=== PATIENT | male | born 1955 | race Caucasian/White ===

== ENCOUNTER 2016-12-26 15:15 | Observation (INO) | payer OTHER ==
[~2016-12-26 15:15] MED LIST: HYDROXYUREA 500 MG CAPSULE PO SCH
--- NOTE | 2016-12-26 15:32 | PDOC ---
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 The patient states that when he woke up this morning, he was in his usual state of health. He states that the chest pain began abruptly as he was having his morning coffee and reading the newspaper. The patient reports that he went about his day, took a shower, had another cup of coffee and went to the post office. At the post office, the patient states that the pain became unbearable so he decided to go straight to the ED for evaluation. The patient describes the pain as sharp and states that the pain radiates to the left side of his back. The patient states that the pain is exacerbated by any movement and reports that when at rest, he is in no pain. The patient states that he has never experienced these symptoms before. The patient denies feeling lightheaded or dizzy. The patient denies palpitations or shortness of breath. The patient denies fever, chills, headache, nausea, vomiting, diarrhea or dysuria. The patient denies any lower extremity/calf pain. Allergies: Cyclobenzaprine HCl, Methocarbamol, Oxycodone. Past Surgical History: Splenectomy. Social History: Former smoker (quit 40 years ago). Denies alcohol or drug use. PCP: Dr. Becca Cruz Telescope Operator: Dr. Magy Barroso <Rae Broderick - Last Filed: 12/26/16 18:36> - General Chief Complaint: Chest Pain Stated Complaint: LEFT UPPER CHEST & BACK PAIN Time Seen by Provider: 12/26/16 15:31 Past History - Surgical History Abdominal Surgery: Yes (SPLENECTOMY) - Psycho/Social/Smoking Cessation Hx Anxiety: No Suicidal Ideation: No Smoking Status: Yes Smoking History: Former smoker Number of Cigarettes Smoked Daily: 0 <Dorota Pringle - Last Filed: 12/26/16 18:31> <Rae Broderick - Last Filed: 12/26/16 18:36> - Past Medical History Allergies/Adverse Reactions: Allergies Allergy/AdvReac Type Severity Reaction Status Date / Time cyclobenzaprine HCl Allergy Verified 12/26/16 15:26 [From Flexeril] methocarbamol [From Robaxin] Allergy Verified 12/26/16 15:26 oxycodone [Oxycodone] Allergy Verified 12/26/16 15:26 Home Medications: Ambulatory Orders Hydroxyurea [Hydrea -] 1,000 mg PO SUSA 12/26/16 Hydroxyurea [Hydrea -] 500 mg PO MOTUWETHFR 12/26/16 Review of Systems - Review of Systems Able to Perform ROS?: Yes Comments:: 12/26/16 15:38 GENERAL/CONSTITUTIONAL: No fever or chills. No weakness. HEAD, EYES, EARS, NOSE AND THROAT: No change in vision. No ear pain or discharge. No sore throat. CARDIOVASCULAR: +Chest pain. No shortness of breath. RESPIRATORY: No cough, wheezing, or hemoptysis. GASTROINTESTINAL: No nausea, vomiting, diarrhea or constipation. GENITOURINARY: No dysuria, frequency, or change in urination. MUSCULOSKELETAL: No joint or muscle swelling or pain. No neck or back pain. SKIN: No rash. NEUROLOGIC: No headache, vertigo, loss of consciousness, or change in strength/ sensation. ENDOCRINE: No increased thirst. No abnormal weight change. HEMATOLOGIC/LYMPHATIC: No anemia, easy bleeding, or history of blood clots. ALLERGIC/IMMUNOLOGIC: No hives or skin allergy. <Rae Broderick - Last Filed: 12/26/16 18:36> *Physical Exam - Physical Exam Comments: 12/26/16 15:37 GENERAL: Awake, alert, and fully oriented, in no acute distress. HEAD: No signs of trauma. EYES: PERRLA, EOMI, sclera anicteric, conjunctiva clear. ENT: Auricles normal inspection, hearing grossly normal, nares patent, oropharynx clear without exudates. Moist mucosa. NECK: Normal ROM, supple, no lymphadenopathy, JVD, or masses. LUNGS: Breath sounds equal, clear to auscultation bilaterally. No wheezes, and no crackles. HEART: Regular rate and rhythm, normal S1 and S2, no murmurs, rubs or gallops. ABDOMEN: Soft, nontender, normoactive bowel sounds. No guarding, no rebound. No masses. EXTREMITIES: Normal range of motion, no edema. No clubbing or cyanosis. No cords, erythema, or tenderness. NEUROLOGICAL: Cranial nerves II through XII intact. Normal speech, normal gait. SKIN: Warm, dry, normal turgor, no rashes or lesions noted. <Rae Broderick - Last Filed: 12/26/16 18:36> Heart Score/ECG Review #1 ECG reviewed & interpreted by me at: 15:20 (Sinus tachycardia. Q waves in 2, 3 and AVF. Poor R wave progression. Normal intervals. No acute ST segment changes. ) <Rae Broderick - Last Filed: 12/26/16 18:36> ED Treatment Course - LABORATORY CBC & Chemistry Diagram: 12/26/16 15:45 12/26/16 15:45 <Dorota Pringle - Last Filed: 12/26/16 18:31> - LABORATORY CBC & Chemistry Diagram: 12/26/16 15:45 12/26/16 15:45 <Rae Broderick - Last Filed: 12/26/16 18:36> Medical Decision Making - Medical Decision Making 12/26/16 15:35 61-year-old male with history of multiple DVTs in the past and thrombocytosis presents to the emergency department with chest pain since this morning that is intermittent and pleuritic in nature. Differential diagnosis includes but is not limited to: PE, ACS, aortic dissection, pneumothorax, pneumonia, musculoskeletal pain. Plan: 1. EKG 2. Chest x-ray 3. Labs 4. Pain management 5. CT angios chest 6. Observe and reevaluate 12/26/16 18:27 Addendum: the labs were reviewed and are noted in the EMR. CT chest shows no PE or dissection but there is an aneurysmal dilation of the ascending aorta with bilateral pleural effusions. Given his q waves in II, III, F and no prior cardiac work-up, will admit to tele observation for serial cardiac markers and stress test. <Dorota Pringle - Last Filed: 12/26/16 18:31> - Medical Decision Making 12/26/16 18:36 EXAM: RAD/CHEST X-RAY PORTABLE Reviewed By: Dr. Anival Valenzuela IMPRESSION: Since prior chest x-ray dated 05/19/2011, the cardiac silhouette remains within normal limits in size with mild unfolding of the aortic arch. Mild bilateral increased interstitial markings and mild elevation of the right hemidiaphragm again seen. There is a ill-defined focal opacity in the left lung base likely representing summation of shadows, bronchi over the anterior arch of the left sixth rib. Further evaluation with PA and lateral view of the chest is needed for confirmation. EXAM: CT/CHEST CTA Reviewed By: Dr. Anival Valenzuela IMPRESSION: There is no evidence of a pulmonary embolus in the main per minute artery and its proximal bifurcations, bilaterally. Borderline Anusol dilatation of the ascending aorta measuring 4 cm and without evidence of dissection. A small amount of free fluid again seen in the mediastinum and around the aortic arch as well as in the superior cardiac recess, of uncertain etiology, Trace of pericardial effusion is present. Mild bibasal atelectatic changes with foci of atelectatic changes versus airspace disease in the left upper lobe as well as a small focus in the right upper lobe, anteriorly. Minimal bilateral pleural effusion. Mild centrilobular emphysema. <Rae Broderick - Last Filed: 12/26/16 18:36> *DC/Admit/Observation/Transfer - Discharge Dispostion Admit: Yes - Attestations Physician Attestion: 12/26/16 15:36 I, Dr. Dorota Pringle, attest that the scribes documentation that appears above has been prepared under my direction and personally reviewed by me in its entirety. I confirmed that the note above accurately reflects all work, treatment, procedures, and medical decision-making performed by me. <Dorota Pringle - Last Filed: 12/26/16 18:31> - Attestations Scribe Attestion: 12/26/16 15:37 Documentation prepared by Rae Broderick, acting as medical or surgical instrument maker for Dorota Pringle MD. <Rae Broderick - Last Filed: 12/26/16 18:36> Diagnosis at time of Disposition: Chest pain - Discharge Dispostion Condition at time of disposition: Stable - Referrals Referrals: Becca Cruz MD [Primary Care Provider] -
[2016-12-26 15:52] VITALS: BMI 32.5
[2016-12-26 16:14] LABS: MEAN PLT VOLUME 9.8 fl (7.5-11.1)
[2016-12-26 16:16] LABS: MCH 37.2 pg (25.7-33.7); MCHC 33.5 g/dl (32.0-35.9); MEAN CELL VOLUME 110.9 fl (80-96); PLATELET COUNT 394 K/MM3 (134-434); RDW 15.2 % (11.9-15.9); WHITE BLOOD COUNT 15.4 K/mm3 (4.0-10.0)
[2016-12-26 16:19] LABS: ALBUMIN 4.2 g/dl (3.5-5.0); ALK PHOS 60 U/L (32-92); ANION GAP 9 (8-16); BILIRUBIN,TOTAL 1.4 mg/dl (0.2-1.0); CALCIUM 9.5 mg/dl (8.4-10.2); CO2 22 mmol/L (22-28); CPK(DFH) 106 IU/L (38-174); CREATININE 1.2 mg/dl (0.6-1.3); GLUCOSE,RANDOM 153 mg/dl (74-106); INR 1.2 (0.82-1.09); MAGNESIUM 1.7 mg/dL (1.8-2.4); PHOSPHOROUS 2.6 mg/dl (2.5-4.6); PROTHROMBIN TIME (PATIENT) 13.4 SEC (10.2-13.0); SGOT/AST 29 U/L (10-42); SGPT/ALT 18 U/L (10-40); TOT PROT 8.1 g/dl (6.4-8.3)
[2016-12-26 16:28] LABS: TROPONIN I (DFP) < 0.03 ng/ml (0.03-0.50)
[2016-12-26 17:21] LABS: PLATELET ESTIMATE INCREASED (NORMAL)
[2016-12-26 17:23] LABS: PLATELET COMMENT2 SLT PLT CLUMPING
[2016-12-26] MEDS ORDERED: HYDROXYUREA 500 MG CAPSULE PO SCH (22:00)
[2016-12-26 22:23] LABS: CPK(DFH) 88 IU/L (38-174)
[2016-12-26] MEDS ORDERED: MAGNESIUM SULF 50% (8.12 MEQ/2 ML-1 GM VIAL) IVPB ONE (22:33)
--- NOTE | 2016-12-26 22:38 | HP ---
CHIEF COMPLAINT: chest pain PCP: Becca Cruz; Machine Applicator Cementer: Magy Barroso HISTORY OF PRESENT ILLNESS: This is a 61 year old male with a past medical history of thrombocytosis s/p multiple DVTs who presented to the ED with intermittent chest pain since 930am. Pt states that he was fine when he awoke, had coffee and then began feeling "lousy" with mild chest pain. Pt rested in bed for about an hour and then felt better, so he got up and showered and was fine until he was getting out of the car later in the day. the pain started in his back and was stabbing through to his chest. It was worse with twisting motions. The pain persisted while he walked to the postoffice and back so he drove to the ED. Initially upon arrival , he felt worse but the pain spontaneously resolved. No further pain at present. Pt denies palpitations, SOB, N/V/D. ER course was notable for: (1) troponin negative (2) Q wave 2,3,aVF (3) CTA negative for PE Recent Travel: pt denies PAST MEDICAL HISTORY: thrombocytosis multiple DVTs dislocated pelvis 1998 PAST SURGICAL HISTORY: splenectomy 1961 Social History: Smoking: pt denies Alcohol: pt denies Drugs: pt denies Family History: mother in childbirth father , ETOH brother , drug abuser Allergies cyclobenzaprine HCl [From Flexeril] Allergy (Verified 12/26/16 15:26) methocarbamol [From Robaxin] Allergy (Verified 12/26/16 15:26) oxycodone [Oxycodone] Allergy (Verified 12/26/16 15:26) HOME MEDICATIONS: 3 Medication Instructions Recorded Hydroxyurea [Hydrea -] 500 mg PO SUSA 12/26/16 Hydroxyurea [Hydrea -] 1000 mg PO MOTUWETHFR 12/26/16 REVIEW OF SYSTEMS CONSTITUTIONAL: Absent: fever, chills, diaphoresis, generalized weakness, malaise, loss of appetite, weight change HEENT: Absent: rhinorrhea, nasal congestion, throat pain, throat swelling, difficulty swallowing, mouth swelling, ear pain, eye pain, visual changes CARDIOVASCULAR: Present: chest pain Absent: syncope, palpitations, irregular heart rate, lightheadedness, peripheral edema RESPIRATORY: Absent: cough, shortness of breath, dyspnea with exertion, orthopnea, wheezing, stridor, hemoptysis GASTROINTESTINAL: Absent: abdominal pain, abdominal distension, nausea, vomiting, diarrhea, constipation, melena, hematochezia GENITOURINARY: Absent: dysuria, frequency, urgency, hesitancy, hematuria, flank pain, genital pain MUSCULOSKELETAL: Absent: myalgia, arthralgia, joint swelling, back pain, neck pain SKIN: Absent: rash, itching, pallor HEMATOLOGIC/IMMUNOLOGIC: Absent: easy bleeding, easy bruising, lymphadenopathy, frequent infections ENDOCRINE: Absent: unexplained weight gain, unexplained weight loss, heat intolerance, cold intolerance NEUROLOGIC: Absent: headache, focal weakness or paresthesias, dizziness, unsteady gait, seizure, mental status changes, bladder or bowel incontinence PSYCHIATRIC: Absent: anxiety, depression, suicidal or homicidal ideation, hallucinations. PHYSICAL EXAMINATION Vital Signs - 24 hr 3 12/26/16 15:20 Temperature 98.0 F Pulse Rate 102 H Respiratory 16 Rate Blood Pressure 152/103 O2 Sat by Pulse 97 Oximetry (%) GENERAL: Awake, alert, and fully oriented, in no acute distress. HEAD: Normal with no signs of trauma. EYES: Pupils equal, round and reactive to light, extraocular movements intact, sclera anicteric, conjunctiva clear. No lid lag. EARS, NOSE, THROAT: Ears normal, nares patent, oropharynx clear without exudates. Moist mucous membranes. NECK: Normal range of motion, supple without lymphadenopathy, JVD, or masses. LUNGS: Breath sounds equal, clear to auscultation bilaterally. No wheezes, and no crackles. No accessory muscle use. HEART: Regular rate and rhythm, normal S1 and S2 without murmur, rub or gallop. ABDOMEN: Soft, nontender, not distended, normoactive bowel sounds, no guarding, no rebound, no masses. No hepatomegaly or splenomegaly. MUSCULOSKELETAL: Normal range of motion at all joints. No bony deformities or tenderness. No CVA tenderness. UPPER EXTREMITIES: 2+ pulses, warm, well-perfused. No cyanosis. No clubbing. No peripheral edema. LOWER EXTREMITIES: 2+ pulses, warm, well-perfused. No calf tenderness. No peripheral edema. NEUROLOGICAL: Cranial nerves II-XII intact. Normal speech. Normal gait. PSYCHIATRIC: Cooperative. Good eye contact. Appropriate mood and affect. SKIN: Warm, dry, normal turgor, no rashes or lesions noted, normal capillary refill. Laboratory Results - last 24 hr 3 12/26/16 12/26/16 12/26/16 15:45 15:45 15:45 WBC 15.4 H RBC 4.47 Hgb 16.6 Hct 49.6 H MCV 110.9 H MCHC 33.5 RDW 15.2 Plt Count 394 MPV 9.8 Neutrophils % 83.0 H Lymphocytes % 14.0 Monocytes % 3.0 L Platelet Estimate Increased Platelet Comment Slt plt clumping Macrocytosis 2+ INR 1.20 PTT (Actin FS) 30.5 D-Dimer 495 H Sodium 134 L Potassium 4.2 Chloride 103 Carbon Dioxide 22 Anion Gap 9 BUN 18 Creatinine 1.2 Creat Clearance w eGFR > 60 Random Glucose 153 H Calcium 9.5 Phosphorus 2.6 Magnesium 1.7 L Total Bilirubin 1.4 H D AST 29 ALT 18 D Alkaline Phosphatase 60 D Creatine Kinase 106 Troponin I < 0.03 L Total Protein 8.1 Albumin 4.2 Lipase 41 EXAM#: TYPE/EXAM: RESULT: [id number] CT/CHEST CTA History of DVT. Now with chest pain. CT scan of the chest following intravenous contrast. A post intravenous contrast CT angiogram of the chest was performed utilizing pulmonary embolus protocol. Coronal/ sagittal reconstruction images were obtained. 82 cc of Omnipaque 350 was intravenously injected Compared to prior contrast-enhanced CT scan of the chest dated 05/19/2011 No gross filling defect is seen within the main pulmonary artery and its proximal branches. Ascending aorta measures 4 cm in AP dimension without significant interval change. There is a small amount of fluid in the superior mediastinum as well as around the aortic arch and in the superior cardiac recess. The thoracic and visualized portion of the upper abdominal aorta is normally enhanced without evidence of dissection. The heart is within normal limits in size. A trace of pericardial effusion is present. No gross mediastinal or hilar enlarged lymph nodes are identified. There are mild bibasal atelectatic changes. Focal patchy atelectatic changes/airspace disease in the left upper lobe, laterally as well as a small focus of atelectasis/ airspace disease in the right upper lobe, anteriorly. Mild centrilobular emphysema is present. There is minimal bilateral pleural effusion No pneumothorax is identified Included portion of the upper abdomen demonstrates a 1.6 cm right renal exophytic cyst. Partially included focal area of stranding/ edema seen in the mesentery posterior to the right kidney which is of uncertain etiology. Visualized osseous structures appear intact IMPRESSION: There is no evidence of a pulmonary embolus in the main per minute artery and its proximal bifurcations, bilaterally. Borderline Anusol dilatation of the ascending aorta measuring 4 cm and without evidence of dissection. A small amount of free fluid again seen in the mediastinum and around the aortic arch as well as in the superior cardiac recess, of uncertain etiology. Trace of pericardial effusion is present. Mild bibasal atelectatic changes with foci of atelectatic changes versus airspace disease in the left upper lobe as well as a small focus in the right upper lobe, anteriorly. Minimal bilateral pleural effusion. Mild centrilobular emphysema. EXAM#: TYPE/EXAM: RESULT: [id number] RAD/CHEST X-RAY PORTABLE* Chest pain Portable chest x-ray AP sitting. Since prior chest x-ray dated 05/19/2011, the cardiac silhouette remains within normal limits in size with mild unfolding of the aortic arch. Mild bilateral increased interstitial markings and mild elevation of the right hemidiaphragm again seen. There is a ill-defined focal opacity in the left lung base likely representing summation of shadows, bronchi over the anterior arch of the left sixth rib. Further evaluation with PA and lateral view of the chest is needed for confirmation. Impression: See discussion above. ASSESSMENT/PLAN: 61yM with PMH thrombocytosis, splenectomy, DVTs who presented to the ED with chest pain. He is being admitted for observation for chest pain workup. Chest pain - troponin neg x 1, trend x 2 more - cardiology consult - pt adamantly refusing chemical stress test and states he cannot tolerate treadmill due to pelvis injury leukocytosis - unknown etiology, ? reactive, pt afebrile, denies fever, chills, cough at home - repeat labs in am. DVT PPX - chemoprophylaxis deferred, expected LOS < 48h FEN - tolerating po, hold IV - repeat labs including magnesium in am - regular diet Dispo: Pt currently requires inpatient observation of his emergent condition. Visit type - Emergency Visit Emergency Visit: Yes ED Registration Date: 12/26/16 Care time: The patient presented to the Emergency Department on the above date and was hospitalized for further evaluation of their emergent condition. - New Patient This patient is new to me today: Yes Date on this admission: 12/26/16 - Critical Care Critical Care patient: No
[2016-12-26 22:52] LABS: TROPONIN I (DFP) < 0.03 ng/ml (0.03-0.50)
[2016-12-27 06:00] LABS: BASOPHIL 1.2 % (0-2.0); EOSINOPHIL 0.7 % (0-4.5); MCH 36.1 pg (25.7-33.7); MCHC 32.6 g/dl (32.0-35.9); MEAN CELL VOLUME 110.6 fl (80-96); MEAN PLT VOLUME 10.4 fl (7.5-11.1); NEUTROPHILS 61.4 % (42.8-82.8); RDW 15.5 % (11.9-15.9); WHITE BLOOD COUNT 12.9 K/mm3 (4.0-10.0)
[2016-12-27 06:07] LABS: URINE APPEARANCE CLEAR; URINE BILIRUBIN NEGATIVE (NEGATIVE); URINE BLOOD NEGATIVE (NEGATIVE); URINE COLOR YELLOW; URINE GLUCOSE (UA) NEGATIVE (NEGATIVE); URINE KETONE TRACE (NEGATIVE); URINE LEUK ESTERASE TRACE (NEGATIVE); URINE NITRITE NEGATIVE (NEGATIVE); URINE PROTEIN NEGATIVE (NEGATIVE); URINE UROBILINOGEN NEGATIVE E.U./dl (0.2-1.0)
[2016-12-27 06:26] LABS: URINE MUCUS MODERATE; URINE RBC 3 /hpf (0-3); URINE WBC 5 /hpf (3-5)
[2016-12-27 06:31] LABS: ALBUMIN 3.6 g/dl (3.4-5.0); ALK PHOS 65 U/L (45-117); ANION GAP 10 (8-16); BILIRUBIN,TOTAL 1.1 mg/dL (0.2-1.0); CALCIUM 8.6 mg/dL (8.5-10.1); CO2 29 mmol/L (21-32); CREATININE 1.2 mg/dL (0.7-1.3); GLUCOSE,RANDOM 129 mg/dL (74-106); MAGNESIUM 2.3 mg/dL (1.8-2.4); PHOSPHOROUS 3.9 mg/dL (2.5-4.9); SGOT/AST 15 U/L (15-37); SGPT/ALT 19 U/L (12-78); TOT PROT 7.6 g/dl (6.4-8.2)
[2016-12-27 06:52] LABS: PLATELET COUNT 396 K/MM3 (134-434)
[2016-12-27 07:04] LABS: TROPONIN I < 0.02 ng/ml (0.00-0.05)
--- NOTE | 2016-12-27 09:28 | CON.CARD ---
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 He woke up in the morning yesterday unremarkable and then started to have above symptoms which got worse when he had gone to the post office. Since the pain was unbearable, he decided to come to ED here directly for evaluation. ECG was unremarkable except poor R progression and possible inferior segment involvement. Troponins were negative 3 sets. He is chest pain free this morning. CT chest did not reveal evidence of pulmonary embolus. He denies chest pain, shortness of breath or palpitations. He denies paroxysmal nocturnal dyspnea or orthopnea. He denies fever or chills. He denies headache or lightheadedness. Cardiology consultation was called for further evaluation. PCP: Dr. Becca Cruz Music Adapter: Dr. Magy Barroso - History Source History Provided By: Patient, Medical Record Limitations to Obtaining History: No Limitations - Past Medical History Cardio/Vascular: Yes: Deep Vein Thrombosis Heme/Onc: Yes: Other (thrombocytosis) - Past Surgical History Past Surgical History: Yes: Splenectomy - Alcohol/Substance Use Hx Alcohol Use: No - Smoking History Smoking history: Former smoker Have you smoked in the past 12 months: No Aproximately how many cigarettes per day: 0 Home Medications - Allergies Allergies/Adverse Reactions: Allergies Allergy/AdvReac Type Severity Reaction Status Date / Time cyclobenzaprine HCl Allergy Verified 12/26/16 15:26 [From Flexeril] methocarbamol [From Robaxin] Allergy Verified 12/26/16 15:26 oxycodone [Oxycodone] Allergy Verified 12/26/16 15:26 - Home Medications Home Medications: Ambulatory Orders Hydroxyurea [Hydrea -] 1,000 mg PO SUSA 12/26/16 Hydroxyurea [Hydrea -] 500 mg PO MOTUWETHFR 12/26/16 Family Disease History - Family Disease History Other Family History: History of CAD and OH Review of Systems - Review of Systems Constitutional: denies: Chills, Fever Cardiovascular: reports: Chest Pain. denies: Palpitations, Shortness of Breath Respiratory: denies: Cough, Hemoptysis, Orthopnea, PND, SOB, SOB on Exertion Gastrointestinal: denies: Abdominal Pain, Constipation, Diarrhea, Melena, Nausea , Rectal Bleeding, Vomiting Genitourinary: denies: Dysuria Neurological: denies: Dizziness, Headache, Seizure, Syncope Vital Signs: Vital Signs Temperature 97.9 F 12/27/16 05:44 Pulse Rate 80 12/27/16 05:44 Respiratory Rate 19 12/27/16 09:00 Blood Pressure 151/86 12/27/16 05:44 O2 Sat by Pulse Oximetry (%) 93 L 12/27/16 09:00 Neck: Yes: Supple Respiratory: Yes: CTA Bilaterally Gastrointestinal: Yes: Normal Bowel Sounds, Soft. No: Tenderness Cardiovascular: Yes: Regular Rate and Rhythm JVD: No Carotid Bruit: No PMI: Non-Displaced Heart Sounds: Yes: S1, S2 Murmur: No: Systolic Murmur Edema: No - Other Data Labs, Other Data: CBC, BMP 12/27/16 04:30 12/27/16 04:30 INR, PTT INR 1.20 (0.82-1.09) 12/26/16 15:45 Troponin, BNP 12/26/16 12/27/16 12/27/16 21:55 04:30 04:30 Troponin I < 0.03 L Cancelled < 0.02 Laboratory Results - last 24 hr 12/26/16 12/26/16 12/26/16 15:45 15:45 15:45 WBC 15.4 H RBC 4.47 Hgb 16.6 Hct 49.6 H MCV 110.9 H MCHC 33.5 RDW 15.2 Plt Count 394 MPV 9.8 Neutrophils % 83.0 H Lymphocytes % 14.0 Monocytes % 3.0 L Eosinophils % Basophils % Platelet Estimate Increased Platelet Comment Slt plt clumping Macrocytosis 2+ INR 1.20 PTT (Actin FS) D-Dimer 495 H Sodium 134 L Potassium 4.2 Chloride 103 Carbon Dioxide 22 Anion Gap 9 BUN 18 Creatinine 1.2 Creat Clearance w eGFR > 60 Random Glucose 153 H Calcium 9.5 Phosphorus 2.6 Magnesium 1.7 L Total Bilirubin 1.4 H D AST 29 ALT 18 D Alkaline Phosphatase 60 D Creatine Kinase Troponin I Total Protein 8.1 Albumin 4.2 Lipase 41 Urine Color Urine Appearance Urine pH Ur Specific [place] Urine Protein Urine Glucose (UA) Urine Ketones Urine Blood Urine Nitrite Urine Bilirubin Urine Urobilinogen Ur Leukocyte Esterase Urine RBC Urine WBC Ur Epithelial Cells Urine Mucus 12/26/16 12/26/16 12/26/16 15:45 15:45 21:55 WBC RBC Hgb Hct MCV MCHC RDW Plt Count MPV Neutrophils % Lymphocytes % Monocytes % Eosinophils % Basophils % Platelet Estimate Platelet Comment Macrocytosis INR PTT (Actin FS) 30.5 D-Dimer Sodium Potassium Chloride Carbon Dioxide Anion Gap BUN Creatinine Creat Clearance w eGFR Random Glucose Calcium Phosphorus Magnesium Total Bilirubin AST ALT Alkaline Phosphatase Creatine Kinase 106 88 Troponin I < 0.03 L < 0.03 L Total Protein Albumin Lipase Urine Color Urine Appearance Urine pH Ur Specific [place] Urine Protein Urine Glucose (UA) Urine Ketones Urine Blood Urine Nitrite Urine Bilirubin Urine Urobilinogen Ur Leukocyte Esterase Urine RBC Urine WBC Ur Epithelial Cells Urine Mucus 12/27/16 12/27/16 12/27/16 04:30 04:30 04:30 WBC 12.9 H D RBC 4.21 D Hgb 15.2 D Hct 46.5 D MCV 110.6 H MCHC 32.6 RDW 15.5 Plt Count 396 D MPV 10.4 Neutrophils % 61.4 D Lymphocytes % 29.3 D Monocytes % 7.4 D Eosinophils % 0.7 Basophils % 1.2 Platelet Estimate Platelet Comment Macrocytosis INR PTT (Actin FS) D-Dimer Sodium 141 Potassium 4.8 Chloride 102 Carbon Dioxide 29 Anion Gap 10 BUN 17 Creatinine 1.2 Creat Clearance w eGFR > 60 Random Glucose 129 H Calcium 8.6 Phosphorus 3.9 Magnesium 2.3 D Total Bilirubin 1.1 H AST 15 ALT 19 Alkaline Phosphatase 65 Creatine Kinase Cancelled Troponin I Cancelled Total Protein 7.6 Albumin 3.6 Lipase Urine Color Urine Appearance Urine pH Ur Specific [place] Urine Protein Urine Glucose (UA) Urine Ketones Urine Blood Urine Nitrite Urine Bilirubin Urine Urobilinogen Ur Leukocyte Esterase Urine RBC Urine WBC Ur Epithelial Cells Urine Mucus 12/27/16 12/27/16 04:30 04:30 WBC RBC Hgb Hct MCV MCHC RDW Plt Count MPV Neutrophils % Lymphocytes % Monocytes % Eosinophils % Basophils % Platelet Estimate Platelet Comment Macrocytosis INR PTT (Actin FS) D-Dimer Sodium Potassium Chloride Carbon Dioxide Anion Gap BUN Creatinine Creat Clearance w eGFR Random Glucose Calcium Phosphorus Magnesium Total Bilirubin AST ALT Alkaline Phosphatase Creatine Kinase 100 Troponin I < 0.02 Total Protein Albumin Lipase Urine Color Yellow Urine Appearance Clear Urine pH 5.0 Ur Specific [place] 1.057 H Urine Protein Negative Urine Glucose (UA) Negative Urine Ketones Trace H Urine Blood Negative Urine Nitrite Negative Urine Bilirubin Negative Urine Urobilinogen Negative Ur Leukocyte Esterase Trace H Urine RBC 3 Urine WBC 5 Ur Epithelial Cells Rare Urine Mucus Moderate Sinus rhythm with poor R progression, possible inferior infarct Echo: Pending Imaging - Results Chest X-ray: Report Reviewed (interstitial marking) Cat Scan: Report Reviewed (Chest CT no PTE, ascending thoracic aorta 4 cm, atelectasis) EKG: Report Reviewed Problem List - Problems (1) Chest pain Code(s): R07.9 - CHEST PAIN, UNSPECIFIED Qualifiers: Chest pain type: unspecified Qualified Code(s): R07.9 - Chest pain, unspecified (2) Thrombocytosis Code(s): D47.3 - ESSENTIAL (HEMORRHAGIC) THROMBOCYTHEMIA (3) Thrombocytosis after splenectomy Code(s): R79.89 - OTHER SPECIFIED ABNORMAL FINDINGS OF BLOOD CHEMISTRY Z90.81 - ACQUIRED ABSENCE OF SPLEEN (4) Abnormal ECG Code(s): R94.31 - ABNORMAL ELECTROCARDIOGRAM [ECG] [EKG] Assessment/Plan 1. Atypical chest pain radiating to back - resolved, etiology unclear 2. Abnormal ECG - rule out CAD 3. Thrombycytosis with history of multiple DVTs PLAN: 1. Serial cardiac enzymes are negative for OH 2. Transthoracic echocardiography to assess LV and valvular function 3. Recommended stress testing at some point to rule out CAD - preferably pharmacological since he cannot walk on the treadmill. Patient will think it over and will follow up as outpatient 4. Patient was advised to follow up with his Music Adapter for further management of thrombocytosis. Currently he is not on any anticoagulation ( previously had taken Coumadin and Pradaxa at one point) as he does not appear to have any hypercoagulable state according to patient Discharge planning if above test is unremarkable Further plans are to follow Micah Vo MD
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
[2016-12-27] MEDS ORDERED: GABAPENTIN 100 MG CAPSULE (FP) PO SCH (10:00)
--- NOTE | 2016-12-27 13:40 | EKG ---
Test Reason : Blood Pressure : / mmHG Vent. Rate : 078 BPM Atrial Rate : 078 BPM P-R Int : 186 ms QRS Dur : 086 ms QT Int : 392 ms P-R-T Axes : 050 -47 000 degrees QTc Int : 446 ms NORMAL SINUS RHYTHM LEFT AXIS DEVIATION INFERIOR INFARCT (CITED ON OR BEFORE 26-DEC-2016) ABNORMAL ECG WHEN COMPARED WITH ECG OF 26-DEC-2016 15:20, T WAVE VARIATION Confirmed by JOSE ANTONIO GIBSON, ELMER ([id number]) on 12/27/2016 1:39:36 PM Referred By: DR BAILEY Confirmed By:ELMER BRADY MD
--- NOTE | 2016-12-27 13:40 | EKG ---
Test Reason : Blood Pressure : / mmHG Vent. Rate : 111 BPM Atrial Rate : 111 BPM P-R Int : 182 ms QRS Dur : 088 ms QT Int : 338 ms P-R-T Axes : 050 -53 064 degrees QTc Int : 459 ms SINUS TACHYCARDIA POSSIBLE LEFT ATRIAL ENLARGEMENT LEFT AXIS DEVIATION INFERIOR INFARCT , AGE UNDETERMINED ABNORMAL ECG POOR R WAVE PROGRESSION NO PREVIOUS ECGS AVAILABLE Confirmed by ELMER BRADY MD ([id number]) on 12/27/2016 1:40:03 PM Referred By: Confirmed By:ELMER BRADY MD
[2016-12-27 14:18] VITALS: BP 144/84; PULSE 77; TEMP 97.6
[2016-12-31] MEDS ORDERED: HYDROXYUREA 500 MG CAPSULE PO SCH ×2 (10:00→17:00)
== END 2016-12-27 16:15 | disposition home or self-care (01) ==
LOC: FER 15:15 → FM/S 19:16
PROVIDERS: ADMIT Internal Medicine; ATTEND Nurse Practitioner Family
DX: R07.89 Other chest pain (principal); D72.829 Elevated white blood cell count, unspecified; D47.3 Essential (hemorrhagic) thrombocythemia; R94.31 Abnormal electrocardiogram [ECG] [EKG]
CPT/HCPCS: 36415; 71010-TC; 71275-TC; 80053; 81003; 81015; 82550; 83690; 83735; 84100; 84484; 85025; 85379; 85610; 85730; 93005; 93306-TC; 99285-25; G0378; J8999

== ENCOUNTER 2017-04-04 10:07 | Inpatient (IN) | payer OTHER ==
--- NOTE | 2017-04-04 10:29 | PDOC ---
History of Present Illness - General Chief Complaint: Weakness Stated Complaint: LEFT LEG WEAKNESS Time Seen by Provider: 04/04/17 10:09 History Source: Patient Exam Limitations: No Limitations - History of Present Illness Initial Comments: 04/04/17 10:26 61 y/o male with hx of polycythemia vera and blood clots presents to ER with left leg swollen since and SOB. No chest pain, N/V/D/C. No fever or chills. Denies fall or trauma. Severity: moderate Past History - Past Medical History Allergies/Adverse Reactions: Allergies Allergy/AdvReac Type Severity Reaction Status Date / Time cyclobenzaprine HCl Allergy Verified 04/04/17 10:17 [From Flexeril] methocarbamol [From Robaxin] Allergy Verified 04/04/17 10:17 oxycodone [Oxycodone] Allergy Verified 04/04/17 10:17 Home Medications: Ambulatory Orders Hydroxyurea [Hydrea 500Mg Capsule -] 1,000 mg PO SUSA 12/26/16 Hydroxyurea [Hydrea 500Mg Capsule -] 500 mg PO MOTUWETHFR 12/26/16 Gabapentin 04/04/17 Metformin HCl 04/04/17 DVT: Yes - Surgical History Abdominal Surgery: Yes (SPLENECTOMY) - Psycho/Social/Smoking Cessation Hx Anxiety: No Suicidal Ideation: No Smoking Status: Yes Smoking History: Former smoker Have you smoked in the past 12 months: No Number of Cigarettes Smoked Daily: 0 Hx Alcohol Use: No Drug/Substance Use Hx: No Substance Use Type: None Review of Systems - Review of Systems Able to Perform ROS?: Yes Is the patient limited Z[place]ian proficient: No Constitutional: No: Chills, Fever Respiratory: Yes: Shortness of Breath. No: Cough, Wheezing, Productive cough Cardiac (ROS): No: Chest Pain, Palpitations ABD/GI: No: Diarrhea, Nausea, Vomiting : No: Dysuria Musculoskeletal: No: Gout, Joint Pain Integumentary: No: Change in Color, Dryness All Other Systems: Reviewed and Negative *Physical Exam - Physical Exam General Appearance: Yes: Nourished, Appropriately Dressed. No: Apparent Distress HEENT: positive: EOMI, ZENON, Normal ENT Inspection Neck: positive: Trachea midline, Normal Thyroid, Supple. negative: Tender, Rigid Respiratory/Chest: positive: Lungs Clear, Normal Breath Sounds. negative: Chest Tender, Respiratory Distress Cardiovascular: positive: Regular Rhythm, Regular Rate, S1, S2. negative: Edema , JVD, Murmur Vascular Pulses: Femoral (R): 4+, Femoral (L): 4+, Carotid (R): 4+, Carotid (L) : 4+, Dorsalis-Pedis (R): 4+, Doralis-Pedis (L): 4+ Gastrointestinal/Abdominal: positive: Normal Bowel Sounds, Flat, Soft. negative : Tender, Organomegaly Lymphatic: negative: Adenopathy, Tenderness, Other Musculoskeletal: positive: Normal Inspection. negative: CVA Tenderness Extremity: positive: Normal Capillary Refill, Normal Range of Motion, Swelling, Calf Tenderness (left calf mild tenderness noted). negative: Normal Inspection (left leg wollen, no compartment syndrome, pulses 2+/4 b/l in LE, no focal deficits noted), Tender, Coldness, Cyanosis, Erythema Integumentary: positive: Normal Color, Dry, Warm. negative: Cyanotic Neurologic: positive: surface hydrologist II-XII NML intact, Fully Oriented, Alert, Normal Mood/ Affect, Normal Response, Motor Strength 5/5 Heart Score/ECG Review - ECG Intrepretation Comment:: 04/04/17 10:57 sinus tachycardia rate 112 t wave inversions lateral leads ED Treatment Course - LABORATORY CBC & Chemistry Diagram: 04/04/17 10:27 04/04/17 11:53 - ADDITIONAL ORDERS Additional order review: 04/04/17 10:29 61 y/o male with hx of DVT, will need CT chest adn US to r/o DVT/PE Pt in agreement with plan 04/04/17 13:31 CXR normal US left leg, extensive DVT Unable to do CT chest to r/o PE, but will cover with Heparin as per Hospitalist May require dialysis Will admit as per Dr. Suresh 04/04/17 13:38 Spoke with Sommer STEPHENS, will place consult with Hand Assembler For Puller Over and US kidneys Agrees with Heparin order Pt in agreement with plan - RADIOLOGY Radiology Studies Ordered: 04/04/17 13:[address] Suresh, would like renal consult and US kidneys if possible before transfer to [place]. *DC/Admit/Observation/Transfer Diagnosis at time of Disposition: Acute renal failure Qualifiers: Acute renal failure type: unspecified Qualified Code(s): N17.9 - Acute kidney failure, unspecified DVT (deep venous thrombosis) Qualifiers: DVT location: lower extremity Affected thrombotic vein of extremity: femoral Chronicity: acute Laterality: left Qualified Code(s): I82.412 - Acute embolism and thrombosis of left femoral vein - Discharge Dispostion Condition at time of disposition: Guarded Admit: Yes
[2017-04-04 11:09] LABS: ALBUMIN 3.3 g/dl (3.5-5.0); ALK PHOS 78 U/L (32-92); ANION GAP 15 (8-16); BILIRUBIN,TOTAL 1.5 mg/dl (0.2-1.0); CALCIUM 8.9 mg/dl (8.4-10.2); CO2 19 mmol/L (22-28); CREATININE 7.1 mg/dl (0.6-1.3); GLUCOSE,RANDOM 159 mg/dl (74-106); SGOT/AST 20 U/L (10-42); SGPT/ALT 15 U/L (10-40); TOT PROT 7.7 g/dl (6.4-8.3)
[2017-04-04 11:13] LABS: INR 1.24 (0.82-1.09); PROTHROMBIN TIME (PATIENT) 13.8 SEC (10.2-13.0)
[2017-04-04 11:28] LABS: EOSINOPHIL 0.4 % (0-4.5)
[2017-04-04 11:32] LABS: TROPONIN I (DFP) 0.08 ng/ml (0.03-0.50)
[2017-04-04 11:33] LABS: BASOPHIL 1.1 % (0-2.0); MCH 37.3 pg (25.7-33.7); MCHC 33.5 g/dl (32.0-35.9); MEAN CELL VOLUME 111.5 fl (80-96); NEUTROPHILS 83.1 % (42.8-82.8); PLATELET COUNT 325 K/MM3 (134-434); RDW 15.4 % (11.9-15.9)
[2017-04-04] MEDS ORDERED: SODIUM CHLORIDE 1,000 ML IV SCH (12:00)
[2017-04-04 12:50] LABS: ALBUMIN 3.3 g/dl (3.5-5.0); ALK PHOS 77 U/L (32-92); ANION GAP 15 (8-16); BILIRUBIN,TOTAL 1.7 mg/dl (0.2-1.0); CALCIUM 8.9 mg/dl (8.4-10.2); CO2 19 mmol/L (22-28); CREATININE 7.1 mg/dl (0.6-1.3); GLUCOSE,RANDOM 152 mg/dl (74-106); SGOT/AST 14 U/L (10-42); SGPT/ALT 18 U/L (10-40); TOT PROT 7.6 g/dl (6.4-8.3)
[2017-04-04] MEDS ORDERED: HEPARIN INFUSION - 500 ML IVPB ONE (13:43)
[2017-04-04] MEDS ORDERED: HEPARIN NA (PORCINE) 5,000 UNITS/ML 1ML VIAL IVPUSH ONE (13:46)
[2017-04-04] MEDS: HEPARIN - 25,000 UNIT in SODIUM CHLORIDE 495 ML IV SCH ×2 (13:48→22:30)
[2017-04-04] MEDS ORDERED: HEPARIN NA (PORCINE) 5,000 UNITS/ML 1ML VIAL ONE (13:50)
--- NOTE | 2017-04-04 13:58 | HP ---
CHIEF COMPLAINT: left lower extremity pain PCP: Shannon 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: Dr Barroso HISTORY OF PRESENT ILLNESS: Patient is a 61 y/o male, with a past medical history of thrombocytopenia, right lower extremity dvt, and NIDDM. Patient reports on , 03/30/17 he developed pain to the left lower extremity with shortness of breath. Patient reports the pain and shortness of breath has worsened within the past 5 days. However, today he was unable to ambulate due to the ongoing pain to the left lower extremity with progressive shortness of breath. He denies any chest pain, dizziness or headaches. Patient does report compliance with prescribed hydroxyurea. ER course was notable for: (1) ultrasound of left lower extremity deep vein thrombosis of the left lower extremity (2) ekg sinus tachycardia with left axis deviation, inverted t waves inferior leads, unchanged from prior (3) heparin gtt started @ 1348 Recent Travel: none PAST MEDICAL HISTORY: NIDDM, thrombocytopenia PAST SURGICAL HISTORY: spleenectomy Social History: resides at home, full employed Smoking: none Alcohol: none Drugs: none Family History: mother cancer (unknown) father alcholism Allergies cyclobenzaprine HCl [From Flexeril] Allergy (Verified 04/04/17 10:17) methocarbamol [From Robaxin] Allergy (Verified 04/04/17 10:17) oxycodone [Oxycodone] Allergy (Verified 04/04/17 10:17) HOME MEDICATIONS: Home Medications Medication Instructions Recorded Hydroxyurea [Hydrea 500Mg Capsule 1,000 mg PO SUSA 12/26/16 -] Hydroxyurea [Hydrea 500Mg Capsule 500 mg PO MOTUWETHFR 12/26/16 -] Gabapentin 04/04/17 Metformin HCl 04/04/17 REVIEW OF SYSTEMS CONSTITUTIONAL: Absent: fever, chills, diaphoresis, generalized weakness, malaise, loss of appetite, weight change HEENT: Absent: rhinorrhea, nasal congestion, throat pain, throat swelling, difficulty swallowing, mouth swelling, ear pain, eye pain, visual changes CARDIOVASCULAR: Absent: chest pain, syncope, palpitations, irregular heart rate, lightheadedness , peripheral edema RESPIRATORY: Absent: cough, shortness of breath, dyspnea with exertion, orthopnea, wheezing, stridor, hemoptysis GASTROINTESTINAL: Absent: abdominal pain, abdominal distension, nausea, vomiting, diarrhea, constipation, melena, hematochezia GENITOURINARY: Absent: dysuria, frequency, urgency, hesitancy, hematuria, flank pain, genital pain MUSCULOSKELETAL: Present: left lower extremity pain Absent: myalgia, arthralgia, joint swelling, back pain, neck pain SKIN: Absent: rash, itching, pallor HEMATOLOGIC/IMMUNOLOGIC: Absent: easy bleeding, easy bruising, lymphadenopathy, frequent infections ENDOCRINE: Absent: unexplained weight gain, unexplained weight loss, heat intolerance, cold intolerance NEUROLOGIC: Absent: headache, focal weakness or paresthesias, dizziness, unsteady gait, seizure, mental status changes, bladder or bowel incontinence PSYCHIATRIC: Absent: anxiety, depression, suicidal or homicidal ideation, hallucinations. PHYSICAL EXAMINATION Vital Signs - 24 hr 04/04/17 04/04/17 04/04/17 10:08 11:15 13:48 Temperature 97.7 F 98.2 F Pulse Rate 125 H Pulse Rate [ 110 H Right] Respiratory 24 20 Rate Blood Pressure 113/78 128/59 Blood Pressure 128/75 [Left] O2 Sat by Pulse 98 97 Oximetry (%) GENERAL: Awake, alert, and fully oriented, extremely anxious. HEAD: Normal with no signs of trauma. EYES: Pupils equal, round and reactive to light, extraocular movements intact, sclera anicteric, conjunctiva clear. No lid lag. EARS, NOSE, THROAT: Ears normal, nares patent, oropharynx clear without exudates. Moist mucous membranes. NECK: Normal range of motion, supple without lymphadenopathy, JVD, or masses. LUNGS: Breath sounds equal, clear to auscultation bilaterally. No wheezes, and no crackles. No accessory muscle use. HEART: Regular rate and rhythm, normal S1 and S2 without murmur, rub or gallop. ABDOMEN: Soft, obese, nontender, suprapubic tenderness noted, with distention, normoactive bowel sounds, no guarding, no rebound, no masses. No hepatomegaly or splenomegaly. MUSCULOSKELETAL: Normal range of motion at all joints. No bony deformities or tenderness. No CVA tenderness. UPPER EXTREMITIES: 2+ pulses, warm, well-perfused. No cyanosis. No clubbing. No peripheral edema. LOWER EXTREMITIES: 2+ pulses, warm, well-perfused. No calf tenderness. No peripheral edema. LEFT LOWER EXTREMITY: cool to touch, +2 edema, +3 pedal pulse upon palpation NEUROLOGICAL: Cranial nerves II-XII intact. Normal speech. PSYCHIATRIC: Cooperative. Good eye contact. Appropriate mood and affect. SKIN: Warm, dry, normal turgor, no rashes or lesions noted, normal capillary refill. Laboratory Results - last 24 hr 04/04/17 04/04/17 04/04/17 10:27 10:27 10:27 WBC 24.0 H D RBC 4.33 Hgb 16.1 Hct 48.3 MCV 111.5 H MCHC 33.5 RDW 15.4 Plt Count 325 MPV 12.0 H D Neutrophils % 83.1 H Lymphocytes % 11.1 D Monocytes % 4.3 Eosinophils % 0.4 Basophils % 1.1 INR 1.24 H PTT (Actin FS) 28.0 Sodium 133 L Potassium 5.5 H D Chloride 99 Carbon Dioxide 19 L Anion Gap 15 BUN 72 H D Creatinine 7.1 H D Creat Clearance w eGFR 7.89 Random Glucose 159 H Calcium 8.9 Total Bilirubin 1.5 H AST 20 D ALT 15 Alkaline Phosphatase 78 D Creatine Kinase Troponin I Total Protein 7.7 Albumin 3.3 L D 04/04/17 04/04/17 10:27 11:53 WBC RBC Hgb Hct MCV MCHC RDW Plt Count MPV Neutrophils % Lymphocytes % Monocytes % Eosinophils % Basophils % INR PTT (Actin FS) Sodium 133 L Potassium 4.7 Chloride 99 Carbon Dioxide 19 L Anion Gap 15 BUN 71 H Creatinine 7.1 H Creat Clearance w eGFR 7.89 Random Glucose 152 H Calcium 8.9 Total Bilirubin 1.7 H AST 14 D ALT 18 Alkaline Phosphatase 77 Creatine Kinase 36 L Troponin I 0.08 D Total Protein 7.6 Albumin 3.3 L ASSESSMENT/PLAN: 1) left lower extremity dvt - ultrasound reviewed of left lower extremity, extensive dvt, involving the left common femoral through posterior tibial vein, greater saphenous, deep femoral vein, heparin gtt started with bolus - serial neurovascular checks - appreciate the input of vascular surgeon 2) heme thrombocytopenia - continue heparin gtt - appreciate the input of hematology, Dr Barroso, patient's private 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 leukocytosis - pt afebrile, chest xray negative for infiltrate, wbc 24, likely reactive, will order blood and urine cultures - close monitoring of cbc and fever curve 3) endo niddm - hold metformin, start fingersticks achs with regular insulin sliding scale 4) neph reid creatine 7.1 baseline 1.2, reid likely secondary to obstructive uropathy vs thrombosis, bladder distention noted, pt declines guerrier cather at this time, will attempt voiding into urinal, pending renal ultrasound, unable to obtain CTA abd/pelvis due to elevated creatine - avoid nephrotic agents - appreciate the input of nephrology ([facility]) f/e/n - diabetic diet - monitor potassium ppx - heparin - zantac dispo: requires inpatient telemetry admission. Visit type - Emergency Visit Emergency Visit: Yes ED Registration Date: 04/04/17 Care time: The patient presented to the Emergency Department on the above date and was hospitalized for further evaluation of their emergent condition. - New Patient This patient is new to me today: Yes Date on this admission: 04/04/17 - Critical Care Critical Care patient: Yes Total Critical Care Time (in minutes): 45 Critical Care Statement: The care of this patient involved high complexity decision making to prevent further life threatening deterioration of the patient 's condition and/or to evalute & treat vital organ system(s) failure or risk of failure.
[2017-04-04] MEDS ORDERED: ACETAMINOPHEN 325 MG TABLET (FP) PO PRN (14:31)
[2017-04-04 16:33] VITALS: BMI 27.8
--- NOTE | 2017-04-04 16:38 | CONSULT ---
Consult Consult Specialty:: Nephrology Reason for Consultation:: CROW - History of Present Illness Chief Complaint: left leg pain and dysuria History of Present Illness: Pt is a 61 year old male with pmhx of polycythemia, dvt and DM who presents to the ER with left leg pain and swelling for about a week. He was found to have a DVT and admitted for treatment. He says he has had clots in the past. He does follow with a pin machine tender. He was also found to be in renal failure. Upon further questioning he does complain of urgency and frequency. He denies fever or chills. He gets the urge to urinate however urinates a small amount. He does feel that his abdomen is more distended than usual. He denies history of CKD. He denies nsaid use. - History Source History Provided By: Patient, Medical Record - Past Medical History Cardio/Vascular: Yes: Deep Vein Thrombosis Endocrine: Yes: Diabetes Mellitus - Past Surgical History Past Surgical History: Yes: Splenectomy - Alcohol/Substance Use Hx Alcohol Use: No - Smoking History Smoking history: Former smoker Have you smoked in the past 12 months: No Aproximately how many cigarettes per day: 0 Home Medications - Allergies Allergies/Adverse Reactions: Allergies Allergy/AdvReac Type Severity Reaction Status Date / Time cyclobenzaprine HCl Allergy Verified 04/04/17 10:17 [From Flexeril] methocarbamol [From Robaxin] Allergy Verified 04/04/17 10:17 oxycodone [Oxycodone] Allergy Verified 04/04/17 10:17 - Home Medications Home Medications: Ambulatory Orders Hydroxyurea [Hydrea 500Mg Capsule -] 1,000 mg PO SUSA 12/26/16 Hydroxyurea [Hydrea 500Mg Capsule -] 500 mg PO MOTUWETHFR 12/26/16 Gabapentin 04/04/17 Metformin HCl 04/04/17 Family Disease History - Family Disease History Family History: Denies Review of Systems - Review of Systems Constitutional: reports: Malaise Eyes: reports: No Symptoms HENT: reports: No Symptoms Neck: reports: No Symptoms Cardiovascular: reports: No Symptoms Respiratory: reports: No Symptoms Gastrointestinal: reports: No Symptoms Genitourinary: reports: Dysuria, Frequency, Urgency. denies: Hematuria Musculoskeletal: reports: Extremity Pain Neurological: reports: No Symptoms Psychiatric: reports: Anxiety Physical Exam Vital Signs: Vital Signs Temperature 98.2 F 04/04/17 14:07 Pulse Rate 102 H 04/04/17 14:07 Respiratory Rate 20 04/04/17 14:07 Blood Pressure 116/70 04/04/17 14:07 O2 Sat by Pulse Oximetry (%) 97 04/04/17 14:07 Constitutional: Yes: Anxious Eyes: Yes: Conjunctiva Clear HENT: Yes: Atraumatic Neck: Yes: Supple Cardiovascular: Yes: S1, S2 Respiratory: Yes: CTA Bilaterally Gastrointestinal: Yes: Soft Renal/: Yes: Bladder Distention, Guerrier Present, Other (placed guerrier after felt distended bladder) Edema: Yes Edema: LLE: Trace Neurological: Yes: Oriented Psychiatric: Yes: Oriented Labs: Laboratory Tests 04/04/17 04/04/17 04/04/17 10:27 10:27 10:27 WBC 24.0 H D Hgb 16.1 Plt Count 325 INR 1.24 H PTT (Actin FS) 28.0 Sodium 133 L Potassium 5.5 H D Chloride 99 Carbon Dioxide 19 L Anion Gap BUN 72 H D Creatinine 7.1 H D Creat Clearance w eGFR 7.89 Random Glucose 159 H 04/04/17 11:53 WBC Hgb Plt Count INR PTT (Actin FS) Sodium 133 L Potassium 4.7 Chloride 99 Carbon Dioxide 19 L Anion Gap 15 BUN 71 H Creatinine 7.1 H Creat Clearance w eGFR 7.89 Random Glucose 152 H Imaging - Results Chest X-ray: Report Reviewed Ultrasound: Report Reviewed Problem List - Problems (1) Acute renal failure Code(s): N17.9 - ACUTE KIDNEY FAILURE, UNSPECIFIED Qualifiers: Acute renal failure type: unspecified Qualified Code(s): N17.9 - Acute kidney failure, unspecified (2) DVT (deep venous thrombosis) Code(s): I82.409 - ACUTE EMBOLISM AND THOMBOS UNSP DEEP VN UNSP LOWER EXTREMITY Qualifiers: DVT location: lower extremity Affected thrombotic vein of extremity: femoral Chronicity: acute Laterality: left Qualified Code(s): I82.412 - Acute embolism and thrombosis of left femoral vein Assessment/Plan Current Medications Generic Name Dose Route Start Last Admin Trade Name Freq PRN Reason Stop Dose Admin Acetaminophen 650 mg 04/04/17 14:31 Tylenol - PO Q4H PRN fever Heparin Sodium (Porcine) 1,000 unit 04/04/17 13:32 Heparin - IVPUSH PRN PRN Heparin Heparin Sodium (Porcine) 5,000 unit 04/04/17 13:32 Heparin - IVPUSH PRN PRN Heparin Sodium Chloride 1,000 mls @ 150 mls/hr 04/04/17 12:00 04/04/17 12:26 Normal Saline - IV 150 mls/hr ASDIR LAURE Administration Heparin Sodium (Porcine) 25, 500 mls @ 20 mls/hr 04/04/17 13:45 04/04/17 13:48 000 unit/ Sodium Chloride IV 20 mls/hr TITR LAURE Administration Protocol 1,000 UNIT/HR Insulin Aspart 1 vial 04/04/17 16:30 Novolog Vial Sliding Scale - SQ ACHS LAURE Protocol Impression 1. CROW 2. obstructive uropathy 3. hyperkalemia 4. DVT 5. polycythemia 6. DM Plan - found pt to have a markedly distended bladder on exam. Did a bedside scan and he had over a liter of urine in his bladder. Guerrier placed and he began to drain urine. Clamped guerrier at about 800 cc. Keep guerrier clamped for an hour. - will start fluids - urology evaluation - ultrasound kidneys and bladder - check ua and cultures - no indication for HD, spoke to primary team - potassium is improved - monitor output for post obstructive diuresis - hematology evaluation - hold metformin - repeat labs in am - will follow Dr Carias
--- NOTE | 2017-04-04 17:21 | PN ---
Progress Note (short form) - Note Progress Note: Ptient followed by Meng Barroso.
[2017-04-04] MEDS: INSULIN SLIDING SCALE (NOVOLOG) 1 VIAL SQ SCH ×2 (17:54→23:02)
[2017-04-04] MEDS: SODIUM CHLORIDE 1,000 ML IV SCH (18:21)
[2017-04-04 19:22] LABS: URINE APPEARANCE CLEAR; URINE BILIRUBIN NEGATIVE (NEGATIVE); URINE BLOOD 2+ (NEGATIVE); URINE COLOR YELLOW; URINE GLUCOSE (UA) NEGATIVE (NEGATIVE); URINE KETONE NEGATIVE (NEGATIVE); URINE LEUK ESTERASE TRACE (NEGATIVE); URINE NITRITE NEGATIVE (NEGATIVE); URINE PROTEIN NEGATIVE (NEGATIVE); URINE UROBILINOGEN NEGATIVE E.U./dl (0.2-1.0)
[2017-04-04 19:23] LABS: GRANULAR CASTS 3 /lpf; URINE MUCUS RARE; URINE RBC 10 /hpf (0-3); URINE WBC 16 /hpf (3-5)
[2017-04-04 21:14] LABS: TROPONIN I 0.04 ng/ml (0.00-0.05)
[2017-04-04] MEDS: HEPARIN NA (PORCINE) 5,000 UNITS/ML 1ML VIAL IVPUSH PRN (22:26)
[2017-04-05] MEDS ORDERED: LORazepam 0.5 MG TABLET PO ONE (02:08)
[2017-04-05 04:00] LABS: BASOPHIL 0.7 % (0-2.0); EOSINOPHIL 1.1 % (0-4.5); MCH 35.8 pg (25.7-33.7); MCHC 32.3 g/dl (32.0-35.9); MEAN CELL VOLUME 110.8 fl (80-96); MEAN PLT VOLUME 11.4 fl (7.5-11.1); NEUTROPHILS 75.7 % (42.8-82.8); PLATELET COUNT 304 K/MM3 (134-434); WHITE BLOOD COUNT 19.4 K/mm3 (4.0-10.0)
[2017-04-05 04:38] LABS: ALBUMIN 2.6 g/dl (3.4-5.0); ALK PHOS 76 U/L (45-117); ANION GAP 12 (8-16); BILIRUBIN,TOTAL 0.6 mg/dL (0.2-1.0); CALCIUM 8.1 mg/dL (8.5-10.1); CO2 21 mmol/L (21-32); CREATININE 4.4 mg/dL (0.7-1.3); GLUCOSE,RANDOM 132 mg/dL (74-106); SGOT/AST 16 U/L (15-37); SGPT/ALT 16 U/L (12-78); TOT PROT 6.4 g/dl (6.4-8.2)
[2017-04-05] MEDS: HEPARIN - 25,000 UNIT in SODIUM CHLORIDE 495 ML IV SCH ×5 (04:40→23:07)
[2017-04-05] MEDS: HEPARIN NA (PORCINE) 5,000 UNITS/ML 1ML VIAL IVPUSH PRN ×3 (04:41→18:34)
[2017-04-05] MEDS: SODIUM CHLORIDE 1,000 ML IV SCH ×2 (05:45→16:15)
[2017-04-05] MEDS ORDERED: SODIUM CHLORIDE IV SCH (06:34)
[2017-04-05] MEDS ORDERED: HEPARIN IV SCH (06:34)
[2017-04-05] MEDS: INSULIN SLIDING SCALE (NOVOLOG) 1 VIAL SQ SCH ×4 (06:59→21:48)
--- NOTE | 2017-04-05 10:22 | CONSULT ---
- Consultation REQUESTING PROVIDER: Dr. Baires CONSULT REQUEST: We have been asked to surgically evaluate this patient for left leg DVT. PCP:Verenice La HISTORY OF PRESENT ILLNESS: The patient is a 61 yo male who presented to the Ed for symptoms of left leg pain since . He has a significant history of DVT in b/l lower extremities since the . The patient denies any chronic swelling to his lower extremities. Currently he states that his leg feels much better and has minimal pain with movement. He currently denies any CP, SOB. PMHx: thrombocytosis-under the care of Dr. Barroso. 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 PSHx: splenectomy for trauma Home Medications Medication Instructions Recorded Hydroxyurea [Hydrea 500Mg Capsule 1,000 mg PO SUSA 12/26/16 -] Hydroxyurea [Hydrea 500Mg Capsule 500 mg PO MOTUWETHFR 12/26/16 -] Gabapentin 04/04/17 Metformin HCl 04/04/17 Allergies Allergy/AdvReac Type Severity Reaction Status Date / Time cyclobenzaprine HCl Allergy Verified 04/04/17 10:17 [From Flexeril] methocarbamol [From Robaxin] Allergy Verified 04/04/17 10:17 oxycodone [Oxycodone] Allergy Verified 04/04/17 10:17 REVIEW OF SYSTEMS: CONSTITUTIONAL: Absent: fever, chills CARDIOVASCULAR: Absent: chest pain, palpitations Present: left lower peripheral edema(acute) RESPIRATORY: Absent: cough, shortness of breath GASTROINTESTINAL: Absent: abdominal pain, no rectal bleeding/h/o stomach ulcer. Never had EGD/ colonoscopy GENITOURINARY: Absent: dysuria, frequency, hesitancy, hematuria Present: nocturia MUSCULOSKELETAL: Absent: joint swelling, back pain, neck pain Present: right hip pain SKIN: Absent: ulcers, non-healing wounds HEMATOLOGIC/IMMUNOLOGIC: Absent: easy bleeding, easy bruising NEUROLOGIC: Absent: focal weakness, paresthesias PHYSICAL EXAM: GENERAL: Awake, alert, and fully oriented, in no acute distress. HEAD: Normal with no signs of trauma. EYES: sclera anicteric, conjunctiva clear. NECK: Normal ROM, JVD LUNGS: Clear to auscultation bilat anteriorly. No wheezes, and no crackles. No accessory muscle use. HEART: Regular rate and rhythm. No murmurs ABDOMEN: Soft, nontender, not distended, normoactive bowel sounds, no guarding, no rebound, no masses. Left paramedian scar-healed. MUSCULOSKELETAL: Normal ROM at all joints. No bony deformities or tenderness. UPPER EXTREMITIES: 2+ pulses, warm, well-perfused. No cyanosis. Cap refill <2 seconds. No peripheral edema. LOWER EXTREMITIES: 2+ DP pulses, warm, well-perfused(b/l). No calf tenderness. Left leg with edema and pain with active movement. NEUROLOGICAL: Normal speech, gait not observed. PSYCH: Cooperative. Good eye contact. Appropriate mood and affect. SKIN: Warm, dry, normal turgor. Vital Signs Temperature 98.8 F 04/05/17 04:49 Pulse Rate 101 H 04/05/17 04:49 Respiratory Rate 20 04/05/17 04:49 Blood Pressure 127/75 04/05/17 04:49 O2 Sat by Pulse Oximetry (%) 95 04/04/17 21:00 Lab Results WBC 19.4 K/mm3 (4.0-10.0) H D 04/05/17 03:50 RBC 3.81 M/mm3 (4.00-5.60) L 04/05/17 03:50 Hgb 13.6 GM/dL (11.7-16.9) D 04/05/17 03:50 Hct 42.2 % (35.4-49) 04/05/17 03:50 MCV 110.8 fl (80-96) H 04/05/17 03:50 MCHC 32.3 g/dl (32.0-35.9) 04/05/17 03:50 RDW 15.0 % (11.9-15.9) 04/05/17 03:50 Plt Count 304 K/MM3 (134-434) D 04/05/17 03:50 Sodium 137 mmol/L (136-145) 04/05/17 03:50 Potassium 4.7 mmol/L (3.5-5.1) 04/05/17 03:50 Chloride 104 mmol/L (98-107) 04/05/17 03:50 Carbon Dioxide 21 mmol/L (21-32) D 04/05/17 03:50 Anion Gap 12 (8-16) 04/05/17 03:50 BUN 61 mg/dL (7-18) H D 04/05/17 03:50 Creatinine 4.4 mg/dL (0.7-1.3) H D 04/05/17 03:50 Random Glucose 132 mg/dL (74-106) H 04/05/17 03:50 Calcium 8.1 mg/dL (8.5-10.1) L 04/05/17 03:50 INR 1.24 (0.82-1.09) H 04/04/17 10:27 Left leg duplex study: 04/04-noncompression, no flow seen in left common femoral vein, superficial femoral vein, popliteal and posterior tibial vein. noncompressible clot also seen in greater saphrenous and deep femoral vein Problem List - Problems (1) DVT (deep venous thrombosis) Assessment/Plan: The patient has finding of noncompressible left lower extremity clot, currently being treated with IV heparin. Case D/w Dr. Baires and because of the patients recurrent history of lower extremity DVT's he recommends lifelong oral anticoagulation treatment Continue to elevate his left lower ext to help with swelling/pain Code(s): I82.409 - ACUTE EMBOLISM AND THOMBOS UNSP DEEP VN UNSP LOWER EXTREMITY Qualifiers: DVT location: lower extremity Affected thrombotic vein of extremity: femoral Chronicity: acute Laterality: left Qualified Code(s): I82.412 - Acute embolism and thrombosis of left femoral vein Visit type - Case Type Case Type: ED Admission - Emergency Emergency Visit: Yes ED Registration Date: 04/04/17 Care time: The patient presented to the Emergency Department on the above date and was hospitalized for further evaluation of their emergent condition. - New patient This patient is new to me today: Yes Date on this admission: 04/05/17 - Critical Care Critical Care patient: No
--- NOTE | 2017-04-05 13:02 | PN ---
Progress Note (short form) - Note Progress Note: Subjective: The patient was seen and examined at the bedside, he reports feeling better today. Cr improving Current Medications Generic Name Dose Route Start Last Admin Trade Name Renny PRN Reason Stop Dose Admin Acetaminophen 650 mg 04/04/17 14:31 Tylenol - PO Q4H PRN fever Heparin Sodium (Porcine) 1,000 unit 04/04/17 13:32 Heparin - IVPUSH PRN PRN Heparin Heparin Sodium (Porcine) 5,000 unit 04/04/17 13:32 04/05/17 10:57 Heparin - IVPUSH 5,000 unit PRN PRN Administration Heparin Sodium Chloride 1,000 mls @ 125 mls/hr 04/04/17 17:00 04/05/17 05:45 Normal Saline - IV 125 mls/hr ASDIR LAURE Administration Heparin Sodium (Porcine) 25, 500 mls @ 26 mls/hr 04/05/17 09:26 04/05/17 10:58 000 unit/ Sodium Chloride IV 29 mls/hr TITR LAURE Administration Protocol 1,300 UNIT/HR Insulin Aspart 1 vial 04/04/17 16:30 04/05/17 11:22 Novolog Vial Sliding Scale - SQ Not Given ACHS LAURE Protocol Objective: Vital Signs Period Temp Pulse Resp BP Sys/Grey Pulse Ox Last 24 Hr 98.2 F-99.0 F 99-111 20-22 116-130/59-88 95-98 Physical Exam: General: NAD, A&Ox3 Lungs: CTA bilaterally Heart: RRR, S1S2 Abd: Soft, non-tender, non-distended. Guerrier catheter in place with clear/yellow urine Ext: LLE edema 2+. 2+ DP/PT bilaterally Neuro: CN 2-12 intact CBCD WBC 19.4 K/mm3 (4.0-10.0) H D 04/05/17 03:50 RBC 3.81 M/mm3 (4.00-5.60) L 04/05/17 03:50 Hgb 13.6 GM/dL (11.7-16.9) D 04/05/17 03:50 Hct 42.2 % (35.4-49) 04/05/17 03:50 MCV 110.8 fl (80-96) H 04/05/17 03:50 MCHC 32.3 g/dl (32.0-35.9) 04/05/17 03:50 RDW 15.0 % (11.9-15.9) 04/05/17 03:50 Plt Count 304 K/MM3 (134-434) D 04/05/17 03:50 MPV 11.4 fl (7.5-11.1) H 04/05/17 03:50 CMP Sodium 137 mmol/L (136-145) 04/05/17 03:50 Potassium 4.7 mmol/L (3.5-5.1) 04/05/17 03:50 Chloride 104 mmol/L (98-107) 04/05/17 03:50 Carbon Dioxide 21 mmol/L (21-32) D 04/05/17 03:50 Anion Gap 12 (8-16) 04/05/17 03:50 BUN 61 mg/dL (7-18) H D 04/05/17 03:50 Creatinine 4.4 mg/dL (0.7-1.3) H D 04/05/17 03:50 Creat Clearance w eGFR 13.70 (>60) 04/05/17 03:50 Random Glucose 132 mg/dL (74-106) H 04/05/17 03:50 Calcium 8.1 mg/dL (8.5-10.1) L 04/05/17 03:50 Total Bilirubin 0.6 mg/dL (0.2-1.0) D 04/05/17 03:50 AST 16 U/L (15-37) 04/05/17 03:50 ALT 16 U/L (12-78) 04/05/17 03:50 Alkaline Phosphatase 76 U/L (45-117) 04/05/17 03:50 Total Protein 6.4 g/dl (6.4-8.2) 04/05/17 03:50 Albumin 2.6 g/dl (3.4-5.0) L D 04/05/17 03:50 CARDIAC ENZYMES Creatine Kinase 31 IU/L (39-308) L 04/04/17 17:45 Troponin I 0.04 ng/ml (0.00-0.05) D 04/04/17 17:45 Assessment: This is a 61 year old male with PMHx of thrombocytopenia, multiple lower extremity DVTs, NIDDM, spleenectomy, polycythemia vera, who presented to the ED with shortness of breath and RLE swelling Plan: 1) : CROW - Previous Cr on 12/27/16 1.2 - Admission Cr 7.1, now 4.4 today - Continue guerrier catheter - Renal/bladder ultrasound: mild cortical atrophy and mild left-sided hydronephrosis. Thick walled urinary bladder, marked prostatic enlargement - Leukocytosis, f/u urine culture - F/u urology consult - Appreciate nephrology consult 2) Heme: Hx of multiple DVTs, now with extensive LLE DVT - LLE doppler: noncompression, no flow seen in left common femoral vein, superficial femoral vein, popliteal and posterior tibial vein. noncompressible clot also seen in greater saphrenous and deep femoral vein - Per patient, this is his 5th diagnosis of DVT in lower extremities. He reports seeing Dr. Magy Barroso as an outpatient and has never been on anticoagulation before. He states he has declined IVC filter in the past as he "is uncomfortable with the risks associated with it" - Continue Heparin gtt - Elevation - Per surgery, will need lifelong anticoagulation - F/u hematology consult Polycythemia vera - Stable 3) Endocrine: DM - BGM ACHS - ISS ACHS 4) F/E/N: - Diabetic diet - Monitor electrolytes 5) Prophylaxis: - Heparin gtt 6) Dispo: - Requires continued inpatient care CODE STATUS: FULL CODE Visit type - Emergency Visit Emergency Visit: Yes ED Registration Date: 04/04/17 Care time: The patient presented to the Emergency Department on the above date and was hospitalized for further evaluation of their emergent condition. - New Patient This patient is new to me today: Yes Date on this admission: 04/05/17 - Critical Care Critical Care patient: No
--- NOTE | 2017-04-05 13:09 | PN ---
Progress Note, Physician History of Present Illness: Pt seen and examined at bedside. He is awake and alert. He is much calmer than he was yesterday. He says he feels better today. - Current Medication List Current Medications: Active Medications Acetaminophen (Tylenol -) 650 mg PO Q4H PRN PRN Reason: fever Heparin Sodium (Porcine) (Heparin -) 1,000 unit IVPUSH PRN PRN PRN Reason: Heparin Heparin Sodium (Porcine) (Heparin -) 5,000 unit IVPUSH PRN PRN PRN Reason: Heparin Last Admin: 04/05/17 10:57 Dose: 5,000 unit Sodium Chloride (Normal Saline -) 1,000 mls @ 125 mls/hr IV ASDIR LAURE Last Admin: 04/05/17 05:45 Dose: 125 mls/hr Heparin Sodium (Porcine) 25, (000 unit/ Sodium Chloride) 500 mls @ 26 mls/hr IV TITR LAURE; 1,300 UNIT/HR PRN Reason: Protocol Last Admin: 04/05/17 10:58 Dose: 29 mls/hr Insulin Aspart (Novolog Vial Sliding Scale -) 1 vial SQ ACHS LAURE PRN Reason: Protocol Last Admin: 04/05/17 11:22 Dose: Not Given - Objective Vital Signs: Vital Signs Temperature 98.5 F 04/05/17 11:39 Pulse Rate 99 H 04/05/17 11:39 Respiratory Rate 20 04/05/17 11:39 Blood Pressure 128/70 04/05/17 11:39 O2 Sat by Pulse Oximetry (%) 98 04/05/17 09:00 Constitutional: Yes: Calm Eyes: Yes: Conjunctiva Clear HENT: Yes: Atraumatic Neck: Yes: Supple Cardiovascular: Yes: S1, S2 Respiratory: Yes: CTA Bilaterally Gastrointestinal: Yes: Soft Genitourinary: Yes: Guerrier Present Edema: Yes Edema: LLE: 1+ Neurological: Yes: Oriented Psychiatric: Yes: Oriented Labs: CBC, BMP 04/05/17 03:50 04/05/17 03:50 INR, PTT INR 1.24 (0.82-1.09) H 04/04/17 10:27 Problem List - Problems (1) Acute renal failure Code(s): N17.9 - ACUTE KIDNEY FAILURE, UNSPECIFIED Qualifiers: Qualified Code(s): N17.9 - Acute kidney failure, unspecified (2) DVT (deep venous thrombosis) Code(s): I82.409 - ACUTE EMBOLISM AND THOMBOS UNSP DEEP VN UNSP LOWER EXTREMITY Qualifiers: Qualified Code(s): I82.412 - Acute embolism and thrombosis of left femoral vein Assessment/Plan Current Medications Generic Name Dose Route Start Last Admin Trade Name Freq PRN Reason Stop Dose Admin Acetaminophen 650 mg 04/04/17 14:31 Tylenol - PO Q4H PRN fever Heparin Sodium (Porcine) 1,000 unit 04/04/17 13:32 Heparin - IVPUSH PRN PRN Heparin Heparin Sodium (Porcine) 5,000 unit 04/04/17 13:32 04/05/17 10:57 Heparin - IVPUSH 5,000 unit PRN PRN Administration Heparin Sodium Chloride 1,000 mls @ 125 mls/hr 04/04/17 17:00 04/05/17 05:45 Normal Saline - IV 125 mls/hr ASDIR LAURE Administration Heparin Sodium (Porcine) 25, 500 mls @ 26 mls/hr 04/05/17 09:26 04/05/17 10:58 000 unit/ Sodium Chloride IV 29 mls/hr TITR LAURE Administration Protocol 1,300 UNIT/HR Insulin Aspart 1 vial 04/04/17 16:30 04/05/17 11:22 Novolog Vial Sliding Scale - SQ Not Given ACHS LAURE Protocol Impression 1. CROW 2. obstructive uropathy 3. hyperkalemia 4. DVT 5. polycythemia 6. DM 7. prostate enlargement Plan - urology eval for prostate enlargement and obstruction - keep guerrier in place - renal function is improving - CROW secondary to obstructive uropathy - will decrease rate of fluids - repeat labs in am - discussed with primary team - follow up urine culture - wound not restart metformin at this point - will follow Dr Carias
--- NOTE | 2017-04-05 17:24 | EKG ---
Test Reason : Blood Pressure : / mmHG Vent. Rate : 112 BPM Atrial Rate : 112 BPM P-R Int : 148 ms QRS Dur : 078 ms QT Int : 368 ms P-R-T Axes : 077 -72 062 degrees QTc Int : 502 ms SINUS TACHYCARDIA LEFT AXIS DEVIATION INFERIOR INFARCT (CITED ON OR BEFORE 26-DEC-2016) T WAVE ABNORMALITY, CONSIDER ANTERIOR ISCHEMIA WHEN COMPARED WITH ECG OF 27-DEC-2016 04:18, T WAVE INVERSION NO LONGER EVIDENT IN INFERIOR LEADS T WAVE INVERSION NOW EVIDENT IN ANTERIOR LEADS Confirmed by MD MYRANDA, GUNNER ([id number]) on 04/05/2017 5:24:13 PM Referred By: AARON REIS Confirmed By:GUNNER WHITMORE MD
[2017-04-05] MEDS ORDERED: ZOLPIDEM TARTRATE 5 MG TABLET PO ONE (22:36)
[2017-04-06] MEDS: HEPARIN - 25,000 UNIT in SODIUM CHLORIDE 495 ML IV SCH ×4 (02:29→19:05)
[2017-04-06] MEDS: SODIUM CHLORIDE 1,000 ML IV SCH ×2 (02:31→13:14)
[2017-04-06 05:39] LABS: MCH 35.4 pg (25.7-33.7); MCHC 31.8 g/dl (32.0-35.9); MEAN CELL VOLUME 111.3 fl (80-96); RDW 15.2 % (11.9-15.9); WHITE BLOOD COUNT 17.3 K/mm3 (4.0-10.0)
[2017-04-06 05:51] LABS: ALBUMIN 2.7 g/dl (3.4-5.0); ALK PHOS 79 U/L (45-117); ANION GAP 10 (8-16); BILIRUBIN,TOTAL 0.6 mg/dL (0.2-1.0); CALCIUM 8.4 mg/dL (8.5-10.1); CO2 24 mmol/L (21-32); GLUCOSE,RANDOM 129 mg/dL (74-106); SGOT/AST 19 U/L (15-37); SGPT/ALT 19 U/L (12-78); TOT PROT 6.4 g/dl (6.4-8.2)
[2017-04-06] MEDS: INSULIN SLIDING SCALE (NOVOLOG) 1 VIAL SQ SCH ×4 (06:00→21:37)
[2017-04-06] MEDS: HEPARIN NA (PORCINE) 5,000 UNITS/ML 1ML VIAL IVPUSH PRN (06:01)
[2017-04-06 08:31] LABS: MEAN PLT VOLUME 11.5 fl (7.5-11.1); PLATELET COUNT 400 K/MM3 (134-434)
[2017-04-06 08:32] LABS: ANISOCYTOSIS 3+; PLATELET COMMENT2 NO CLOTTING DETECTED; PLATELET COMMENT3 FEW GIANT PLTS; PLATELET ESTIMATE SLT INCREASED (NORMAL); POIKILOCYTOSIS 1+
[2017-04-06] MEDS: GABAPENTIN 100 MG CAPSULE (FP) PO SCH ×2 (09:04→21:30)
[2017-04-06] MEDS ORDERED: TAMSULOSIN HCL 0.4 MG CAP.ER.24H (FP) PO STA (10:03)
--- NOTE | 2017-04-06 10:29 | CON.GU ---
Consult Consult Specialty:: urology Referred by:: medicine Reason for Consultation:: urinary retention, BPH, renal failure - History of Present Illness Chief Complaint: urinary retention, BPH, renal failure History of Present Illness: 61 year old with one week of LUTS including incontinence and urinary retention. His creatinine is elevated and he had >1500 ml residual. He denies prior history and any symptoms prior to one week ago. - History Source History Provided By: Patient, Medical Record Limitations to Obtaining History: No Limitations - Past Medical History Cardio/Vascular: Yes: Deep Vein Thrombosis Renal/: Yes: BPH Endocrine: Yes: Diabetes Mellitus - Past Surgical History Past Surgical History: Yes: Splenectomy - Alcohol/Substance Use Hx Alcohol Use: No - Smoking History Smoking history: Former smoker Have you smoked in the past 12 months: No Aproximately how many cigarettes per day: 0 Home Medications - Allergies Allergies/Adverse Reactions: Allergies Allergy/AdvReac Type Severity Reaction Status Date / Time cyclobenzaprine HCl Allergy Verified 04/04/17 10:17 [From Flexeril] methocarbamol [From Robaxin] Allergy Verified 04/04/17 10:17 oxycodone [Oxycodone] Allergy Verified 04/04/17 10:17 - Home Medications Home Medications: Ambulatory Orders Gabapentin 100 mg PO BID 04/06/17 Hydroxyurea [Hydrea -] 1,000 mg PO MOTUWETHFR 04/06/17 Hydroxyurea [Hydrea -] 500 mg PO SUSA 04/06/17 Metformin HCl 500 mg PO BIDAC 04/06/17 Review of Systems - Review of Systems Genitourinary: reports: Frequency, Incontinence. denies: Dysuria, Flank Pain, Pain Physical Exam- Vital Signs: Vital Signs Temperature 98.3 F 04/06/17 09:21 Pulse Rate 96 H 04/06/17 09:21 Respiratory Rate 20 04/06/17 09:21 Blood Pressure 152/79 04/06/17 09:21 O2 Sat by Pulse Oximetry (%) 98 04/05/17 21:00 Constitutional: Yes: Well Nourished, No Distress, Calm Renal/: Yes: Chavez Present. No: Bladder Distention, CVA Tenderness - Left, CVA Tenderness - Right, Hematuria Labs: CBC, BMP 04/06/17 05:30 04/06/17 05:30 Problem List - Problems (1) Urinary retention due to benign prostatic hyperplasia Assessment/Plan: BPH with urinary retention. Will start immediately on flomax and proscar. 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 Will give a trial of void on 04/10/17. Code(s): N40.1 - BENIGN PROSTATIC HYPERPLASIA WITH LOWER URINARY TRACT SYMP R33.8 - OTHER RETENTION OF URINE
[2017-04-06] MEDS: FINASTERIDE 5 MG TABLET (FP) PO SCH (10:51)
--- NOTE | 2017-04-06 14:23 | PN ---
Physical Exam: SUBJECTIVE: Patient seen and examined at bedside. Denies pain, states swelling in LLE is improved. OBJECTIVE: Vital Signs Period Temp Pulse Resp BP Sys/Grey Pulse Ox Last 24 Hr 97.8 F-98.9 F 84-96 18-20 119-152/74-85 98-99 GENERAL: The patient is awake, alert, and fully oriented, in no acute distress. HEAD: Normal with no signs of trauma. EYES: PERRL, extraocular movements intact, sclera anicteric, conjunctiva clear. No ptosis. LUNGS: Breath sounds equal, clear to auscultation bilaterally, no wheezes, no crackles, no accessory muscle use. HEART: Regular rate and rhythm, S1, S2 without murmur, rub or gallop. ABDOMEN: Soft, nontender, nondistended, normoactive bowel sounds, no guarding, no rebound EXTREMITIES: LLE swelling from thigh to foot, 2+ pulses, warm, well-perfused NEUROLOGICAL: Cranial nerves II through XII grossly intact. Normal speech, gait not observed. Laboratory Results - last 24 hr 04/05/17 04/05/17 04/05/17 15:50 17:32 21:00 WBC RBC Hgb Hct MCV MCHC RDW Plt Count MPV Neutrophils % Lymphocytes % Monocytes % Band Neutrophils Platelet Estimate Platelet Comment Poikilocytosis Anisocytosis Macrocytosis PTT (Actin FS) 36.5 H 65.4 H D Sodium Potassium Chloride Carbon Dioxide Anion Gap BUN Creatinine Creat Clearance w eGFR POC Glucometer 123 Random Glucose Calcium Total Bilirubin AST ALT Alkaline Phosphatase Total Protein Albumin 04/05/17 04/06/17 04/06/17 21:48 05:30 05:30 WBC RBC Hgb Hct MCV MCHC RDW Plt Count MPV Neutrophils % Lymphocytes % Monocytes % Band Neutrophils Platelet Estimate Platelet Comment Poikilocytosis Anisocytosis Macrocytosis PTT (Actin FS) 47.8 H Sodium 140 Potassium 5.2 H Chloride 106 Carbon Dioxide 24 Anion Gap 10 BUN 38 H D Creatinine 2.0 H D Creat Clearance w eGFR 34.03 POC Glucometer 113 Random Glucose 129 H Calcium 8.4 L Total Bilirubin 0.6 AST 19 ALT 19 Alkaline Phosphatase 79 Total Protein 6.4 Albumin 2.7 L 04/06/17 04/06/17 04/06/17 05:30 11:50 11:55 WBC 17.3 H RBC 3.68 L Hgb 13.0 Hct 41.0 MCV 111.3 H MCHC 31.8 L RDW 15.2 Plt Count 400 D MPV 11.5 H Neutrophils % 69.0 Lymphocytes % 20.0 D Monocytes % 9.0 Band Neutrophils 2.0 Platelet Estimate Slt increased Platelet Comment No clotting detected Poikilocytosis 1+ Anisocytosis 3+ Macrocytosis 3+ PTT (Actin FS) 51.4 H Sodium Potassium Chloride Carbon Dioxide Anion Gap BUN Creatinine Creat Clearance w eGFR POC Glucometer 122 Random Glucose Calcium Total Bilirubin AST ALT Alkaline Phosphatase Total Protein Albumin Active Medications Generic Name Dose Route Start Last Admin Trade Name Freq PRN Reason Stop Dose Admin Acetaminophen 650 mg 04/04/17 14:31 Tylenol - PO Q4H PRN fever Finasteride 5 mg 04/06/17 10:30 04/06/17 10:51 Proscar - PO 5 mg DAILY LAURE Administration Gabapentin 100 mg 04/06/17 10:00 04/06/17 09:04 Neurontin - PO 100 mg BID LAURE Administration Heparin Sodium (Porcine) 1,000 unit 04/04/17 13:32 04/06/17 06:01 Heparin - IVPUSH 1,000 unit PRN PRN Administration Heparin Heparin Sodium (Porcine) 5,000 unit 04/04/17 13:32 04/05/17 18:34 Heparin - IVPUSH 5,000 unit PRN PRN Administration Heparin Heparin Sodium (Porcine) 25, 500 mls @ 26 mls/hr 04/05/17 09:26 04/06/17 12:03 000 unit/ Sodium Chloride IV Not Given TITR LAURE Protocol 1,300 UNIT/HR Sodium Chloride 1,000 mls @ 100 mls/hr 04/05/17 13:10 04/06/17 13:14 Normal Saline - IV 100 mls/hr ASDIR LAURE Administration Insulin Aspart 1 vial 04/04/17 16:30 04/06/17 12:02 Novolog Vial Sliding Scale - SQ Not Given ACHS [facility] Protocol Tamsulosin HCl 0.4 mg 04/06/17 22:00 Flomax - PO BID LAURE Imaging 04/04 CXR: unremarkable 04/04 US bladder: mild left hydronephrosis; marked prostate en ASSESSMENT/PLAN 61 year-old male with a significant PMH of polycythemia vera, thrombocytopenia, recurrent lower extremity DVTs, NIDDM, and s/p splenectomy secondary to trauma. Admitted for LLE DVT and CROW. LLE DVT --this is 3rd DVT for this patient, not on anticoagulation at home --on heparin drip --followed by Dr. aMgy Barroso who will see patient this afternoon Polycythemia vera Thrombocytopenia --undergoes therapeutic phlebotomies with Dr. Barroso Acute kidney injury --likely secondary to obstructive, enlarged prostate --Cr 7.1 on admission, today 2.0 --seen by urology, maintain guerrier for now --flomax, proscar NIDDM --Novolog sliding scale coverage F/E/N Fluids: PO intake adequate Electrolytes: replete as indicated Nutrition: diabetic diet DVT prophylaxis: heparin drip, oob, ambulation Physical therapy Dispo: continues to require inpatient care. Full Code. Visit type - Emergency Visit Emergency Visit: Yes ED Registration Date: 04/04/17 Care time: The patient presented to the Emergency Department on the above date and was hospitalized for further evaluation of their emergent condition. - New Patient This patient is new to me today: Yes Date on this admission: 04/06/17 - Critical Care Critical Care patient: No
--- NOTE | 2017-04-06 14:38 | PN ---
Progress Note, Physician History of Present Illness: Pt seen and examined at bedside. He is awake and alert. He denies shortness of breath. - Current Medication List Current Medications: Active Medications Acetaminophen (Tylenol -) 650 mg PO Q4H PRN PRN Reason: fever Finasteride (Proscar -) 5 mg PO DAILY [facility] Last Admin: 04/06/17 10:51 Dose: 5 mg Gabapentin (Neurontin -) 100 mg PO BID LAURE Last Admin: 04/06/17 09:04 Dose: 100 mg Heparin Sodium (Porcine) (Heparin -) 1,000 unit IVPUSH PRN PRN PRN Reason: Heparin Last Admin: 04/06/17 06:01 Dose: 1,000 unit Heparin Sodium (Porcine) (Heparin -) 5,000 unit IVPUSH PRN PRN PRN Reason: Heparin Last Admin: 04/05/17 18:34 Dose: 5,000 unit Heparin Sodium (Porcine) 25, (000 unit/ Sodium Chloride) 500 mls @ 26 mls/hr IV TITR LAURE; 1,300 UNIT/HR PRN Reason: Protocol Last Admin: 04/06/17 12:03 Dose: Not Given Sodium Chloride (Normal Saline -) 1,000 mls @ 100 mls/hr IV ASDIR LAURE Last Admin: 04/06/17 13:14 Dose: 100 mls/hr Insulin Aspart (Novolog Vial Sliding Scale -) 1 vial SQ ACHS LAURE PRN Reason: Protocol Last Admin: 04/06/17 12:02 Dose: Not Given Tamsulosin HCl (Flomax -) 0.4 mg PO BID [facility] - Objective Vital Signs: Vital Signs Temperature 98.3 F 04/06/17 09:21 Pulse Rate 96 H 04/06/17 09:21 Respiratory Rate 20 04/06/17 09:21 Blood Pressure 152/79 04/06/17 09:21 O2 Sat by Pulse Oximetry (%) 99 04/06/17 09:00 Constitutional: Yes: Calm Eyes: Yes: Conjunctiva Clear HENT: Yes: Atraumatic Cardiovascular: Yes: S1, S2 Respiratory: Yes: CTA Bilaterally Gastrointestinal: Yes: Soft Genitourinary: Yes: Chavez Present Musculoskeletal: Yes: Other (left leg swellinh) Edema: LLE: 1+ Neurological: Yes: Oriented Psychiatric: Yes: Oriented Labs: CBC, BMP 04/06/17 05:30 04/06/17 05:30 INR, PTT INR 1.24 (0.82-1.09) H 04/04/17 10:27 Problem List - Problems (1) Acute renal failure Code(s): N17.9 - ACUTE KIDNEY FAILURE, UNSPECIFIED Qualifiers: Qualified Code(s): N17.9 - Acute kidney failure, unspecified (2) DVT (deep venous thrombosis) Code(s): I82.409 - ACUTE EMBOLISM AND THOMBOS UNSP DEEP VN UNSP LOWER EXTREMITY Qualifiers: Qualified Code(s): I82.412 - Acute embolism and thrombosis of left femoral vein Assessment/Plan Current Medications Generic Name Dose Route Start Last Admin Trade Name Freq PRN Reason Stop Dose Admin Acetaminophen 650 mg 04/04/17 14:31 Tylenol - PO Q4H PRN fever Finasteride 5 mg 04/06/17 10:30 04/06/17 10:51 Proscar - PO 5 mg DAILY LAURE Administration Gabapentin 100 mg 04/06/17 10:00 04/06/17 09:04 Neurontin - PO 100 mg BID LAURE Administration Heparin Sodium (Porcine) 1,000 unit 04/04/17 13:32 04/06/17 06:01 Heparin - IVPUSH 1,000 unit PRN PRN Administration Heparin Heparin Sodium (Porcine) 5,000 unit 04/04/17 13:32 04/05/17 18:34 Heparin - IVPUSH 5,000 unit PRN PRN Administration Heparin Heparin Sodium (Porcine) 25, 500 mls @ 26 mls/hr 04/05/17 09:26 04/06/17 12:03 000 unit/ Sodium Chloride IV Not Given TITR LAURE Protocol 1,300 UNIT/HR Sodium Chloride 1,000 mls @ 100 mls/hr 04/05/17 13:10 04/06/17 13:14 Normal Saline - IV 100 mls/hr ASDIR LAURE Administration Insulin Aspart 1 vial 04/04/17 16:30 04/06/17 12:02 Novolog Vial Sliding Scale - SQ Not Given ACHS LAURE Protocol Tamsulosin HCl 0.4 mg 04/06/17 22:00 Flomax - PO BID LAURE Impression 1. CROW 2. obstructive uropathy 3. hyperkalemia 4. DVT 5. polycythemia 6. DM 7. prostate enlargement Plan - renal function is improving - urology input appreciated - voiding trial on 04/10 - hematology evaluation pending - low potassium diet - will decrease rate of fluids - repeat labs in am - wound not restart metformin at this point - will follow Dr Carias
[2017-04-06] MEDS: SODIUM CHLORIDE 0.45% 1,000 ML IV SCH (15:16)
--- NOTE | 2017-04-06 19:47 | PN ---
Progress Note (short form) - Note Progress Note: CONSULT 3P 61 yom well known to me for past few years w a Esequiel 2 positive MPN c/w P Vera. He has been managed w maintenance hydrea and ASA (and phlebotomy w initial presentation. ) There is a h/o LE dvt prior to his care w me and had been on coumadin and pradaxa sometime in past. These details have not been avail to me and he was not taking any a/c at presentation. More recently, he presented to [facility] in 12/16 w some weakness and was w/u for PE; this was neg on CTA. On office f/u, he reported that LE duplex had not been obtained and that he noted LLE swelling which was improving. We obtained a duplex in Dr. Cruz's office which was neg. Of note, he traveled to [place] in January. Adm now w severe pelvic cramping and LLE swelling noted sev days [employer]. He describes HALL which is new while ambulating from parking lot to hosp entrance. The sob briskly improved at rest. Found to have acute LLE DVT and ARF related to retention. Currently feels much better w guerrier and heparin gtt. Reports that LLE swelling is dramatically improved. Renal fxn has improved. PE NAD non-tachypneic lungs - CTA CVS-reg S1S2 abd - obese, soft ext - LLE swellling Imp - P Vera, recurrent thrombosis, improving RF CBC indices are reasonable and would cont to hold hydrea; he will most likely need to resume this in future, pend cbc Recurrent dvt - extended use (life-long) a/c indicated. Have rev'd w him that the MPN is RF for both clotting and bleeding. He now recalls that he was taken off pradaxa when gross hematuria was noted. Tolerating heparin gtt thus far. If no upcoming procedures planned, would transition to out pt a/c regimen. Eliquis is reasonable, (as long as renal fxn doesn't worsen) and I rev 'd that it may be assoc w less bleeding risk vs coumadin. He is in agreement w plan. He should f/u in office shortly post-d/c.
[2017-04-06] MEDS: TAMSULOSIN HCL 0.4 MG CAP.ER.24H (FP) PO SCH (21:29)
[2017-04-07] MEDS: INSULIN SLIDING SCALE (NOVOLOG) 1 VIAL SQ SCH ×4 (06:03→21:38)
[2017-04-07 07:32] LABS: ALBUMIN 2.6 g/dl (3.4-5.0); ALK PHOS 78 U/L (45-117); ANION GAP 10 (8-16); BILIRUBIN,TOTAL 0.6 mg/dL (0.2-1.0); CALCIUM 8.5 mg/dL (8.5-10.1); CO2 23 mmol/L (21-32); CREATININE 1.4 mg/dL (0.7-1.3); GLUCOSE,RANDOM 109 mg/dL (74-106); MAGNESIUM 1.8 mg/dL (1.8-2.4); SGOT/AST 21 U/L (15-37); SGPT/ALT 18 U/L (12-78); TOT PROT 6.2 g/dl (6.4-8.2)
[2017-04-07] MEDS: HEPARIN - 25,000 UNIT in SODIUM CHLORIDE 495 ML IV SCH ×2 (08:00→10:00)
[2017-04-07] MEDS: HEPARIN NA (PORCINE) 5,000 UNITS/ML 1ML VIAL IVPUSH PRN (08:17)
[2017-04-07] MEDS: SODIUM CHLORIDE 0.45% 1,000 ML IV SCH (08:20)
--- NOTE | 2017-04-07 09:32 | PN ---
Physical Exam: SUBJECTIVE: Patient seen and examined. Feels well, voices no complaints. OBJECTIVE: Vital Signs Period Temp Pulse Resp BP Sys/Grey Pulse Ox Last 24 Hr 97.7 F-98.9 F 83-94 19-20 128-153/74-78 96 GENERAL: The patient is awake, alert, and fully oriented, in no acute distress. HEAD: Normal with no signs of trauma. EYES: PERRL, extraocular movements intact, sclera anicteric, conjunctiva clear. No ptosis. LUNGS: Breath sounds equal, clear to auscultation bilaterally, no wheezes, no crackles, no accessory muscle use. HEART: Regular rate and rhythm, S1, S2 without murmur, rub or gallop. ABDOMEN: Soft, nontender, nondistended, normoactive bowel sounds, no guarding, no rebound EXTREMITIES: LLE swelling from thigh to foot, 2+ pulses, warm, well-perfused NEUROLOGICAL: Cranial nerves II through XII grossly intact. Normal speech, gait not observed. Laboratory Results - last 24 hr 04/06/17 04/06/17 04/06/17 11:50 11:55 17:32 PTT (Actin FS) 51.4 H Sodium Potassium Chloride Carbon Dioxide Anion Gap BUN Creatinine Creat Clearance w eGFR POC Glucometer 122 101 Random Glucose Calcium Magnesium Total Bilirubin AST ALT Alkaline Phosphatase Total Protein Albumin 04/06/17 04/07/17 04/07/17 21:33 05:36 05:40 PTT (Actin FS) 43.6 H Sodium Potassium Chloride Carbon Dioxide Anion Gap BUN Creatinine Creat Clearance w eGFR POC Glucometer 124 118 Random Glucose Calcium Magnesium Total Bilirubin AST ALT Alkaline Phosphatase Total Protein Albumin 04/07/17 05:40 PTT (Actin FS) Sodium 140 Potassium 5.1 Chloride 107 Carbon Dioxide 23 Anion Gap 10 BUN 26 H D Creatinine 1.4 H D Creat Clearance w eGFR 51.35 POC Glucometer Random Glucose 109 H Calcium 8.5 Magnesium 1.8 D Total Bilirubin 0.6 AST 21 ALT 18 Alkaline Phosphatase 78 Total Protein 6.2 L Albumin 2.6 L Active Medications Generic Name Dose Route Start Last Admin Trade Name Freq PRN Reason Stop Dose Admin Acetaminophen 650 mg 04/04/17 14:31 Tylenol - PO Q4H PRN fever Finasteride 5 mg 04/06/17 10:30 04/06/17 10:51 Proscar - PO 5 mg DAILY LAURE Administration Gabapentin 100 mg 04/06/17 10:00 04/06/17 21:30 Neurontin - PO 100 mg BID LAURE Administration Heparin Sodium (Porcine) 1,000 unit 04/04/17 13:32 04/07/17 08:17 Heparin - IVPUSH 1,000 unit PRN PRN Administration Heparin Heparin Sodium (Porcine) 5,000 unit 04/04/17 13:32 04/05/17 18:34 Heparin - IVPUSH 5,000 unit PRN PRN Administration Heparin Heparin Sodium (Porcine) 25, 500 mls @ 26 mls/hr 04/05/17 09:26 04/06/17 19:05 000 unit/ Sodium Chloride IV 34 mls/hr TITR LAURE Administration Protocol 1,300 UNIT/HR Sodium Chloride 1,000 mls @ 65 mls/hr 04/06/17 14:45 04/07/17 08:20 1/2 Normal Saline IV 65 mls/hr ASDIR LAURE Administration Insulin Aspart 1 vial 04/04/17 16:30 04/07/17 06:03 Novolog Vial Sliding Scale - SQ Not Given ACHS [facility] Protocol Tamsulosin HCl 0.4 mg 04/06/17 22:00 04/06/17 21:29 Flomax - PO 0.4 mg BID LAURE Administration Imaging 04/04 CXR: unremarkable 04/04 US bladder: mild left hydronephrosis; marked prostate en ASSESSMENT/PLAN 61 year-old male with a significant PMH of polycythemia vera, thrombocytopenia, recurrent lower extremity DVTs, NIDDM, and s/p splenectomy secondary to trauma. Admitted for LLE DVT and CROW. LLE DVT --this is 3rd DVT for this patient, had not been on anticoagulation at home --on heparin drip --seen and evaluated by draw in hand Dr. Magy Barroso; plan to start Eliquis when acute renal issues resolve; she will follow as outpatient Polycythemia vera Thrombocytopenia --stable Acute kidney injury BPH --obstructive, enlarged prostate --Cr 7.1 on admission, today 1.4 --seen by urology, maintain guerrier until 04/10 --continue flomax, proscar NIDDM --Novolog sliding scale coverage F/E/N Fluids: PO intake adequate Electrolytes: replete as indicated Nutrition: diabetic diet DVT prophylaxis: heparin drip, oob, ambulation Physical therapy Dispo: continues to require inpatient care. Full Code. Visit type - Emergency Visit Emergency Visit: Yes ED Registration Date: 04/04/17 Care time: The patient presented to the Emergency Department on the above date and was hospitalized for further evaluation of their emergent condition. - New Patient This patient is new to me today: No - Critical Care Critical Care patient: No
[2017-04-07] MEDS: FINASTERIDE 5 MG TABLET (FP) PO SCH (09:55)
[2017-04-07] MEDS: TAMSULOSIN HCL 0.4 MG CAP.ER.24H (FP) PO SCH ×2 (09:55→21:38)
[2017-04-07] MEDS: GABAPENTIN 100 MG CAPSULE (FP) PO SCH ×2 (09:55→21:38)
[2017-04-07 12:17] LABS: MCHC 31.6 g/dl (32.0-35.9); MEAN CELL VOLUME 113.9 fl (80-96); RDW 15.4 % (11.9-15.9); WHITE BLOOD COUNT 14.6 K/mm3 (4.0-10.0)
[2017-04-07 14:35] LABS: PLATELET COMMENT2 NO CLOTTING DETECTED; PLATELET ESTIMATE ADEQUATE (NORMAL)
[2017-04-07] MEDS ORDERED: SODIUM CHLORIDE 0.45% 1,000 ML IV SCH (15:10)
--- NOTE | 2017-04-07 15:10 | PN ---
Progress Note, Physician History of Present Illness: Pt seen and examined at bedside. He is awake and alert. He denies shortness of breath. He feels that his left leg is improving. - Current Medication List Current Medications: Active Medications Acetaminophen (Tylenol -) 650 mg PO Q4H PRN PRN Reason: fever Finasteride (Proscar -) 5 mg PO DAILY [facility] Last Admin: 04/07/17 09:55 Dose: 5 mg Gabapentin (Neurontin -) 100 mg PO BID [facility] Last Admin: 04/07/17 09:55 Dose: 100 mg Heparin Sodium (Porcine) (Heparin -) 1,000 unit IVPUSH PRN PRN PRN Reason: Heparin Last Admin: 04/07/17 08:17 Dose: 1,000 unit Heparin Sodium (Porcine) (Heparin -) 5,000 unit IVPUSH PRN PRN PRN Reason: Heparin Last Admin: 04/05/17 18:34 Dose: 5,000 unit Heparin Sodium (Porcine) 25, (000 unit/ Sodium Chloride) 500 mls @ 26 mls/hr IV TITR LAURE; 1,300 UNIT/HR PRN Reason: Protocol Last Admin: 04/07/17 08:00 Dose: 36 mls/hr Sodium Chloride (1/2 Normal Saline) 1,000 mls @ 65 mls/hr IV ASDIR [facility] Last Admin: 04/07/17 08:20 Dose: 65 mls/hr Insulin Aspart (Novolog Vial Sliding Scale -) 1 vial SQ ACHS [facility] PRN Reason: Protocol Last Admin: 04/07/17 11:57 Dose: 2 units Tamsulosin HCl (Flomax -) 0.4 mg PO BID [facility] Last Admin: 04/07/17 09:55 Dose: 0.4 mg - Objective Vital Signs: Vital Signs Temperature 98.1 F 04/07/17 14:40 Pulse Rate 94 H 04/07/17 14:40 Respiratory Rate 18 04/07/17 14:40 Blood Pressure 128/74 04/07/17 14:40 O2 Sat by Pulse Oximetry (%) 96 04/07/17 09:00 Constitutional: Yes: Calm Eyes: Yes: Conjunctiva Clear HENT: Yes: Atraumatic Neck: Yes: Supple Cardiovascular: Yes: S1, S2 Respiratory: Yes: CTA Bilaterally Gastrointestinal: Yes: Normal Bowel Sounds, Soft Genitourinary: Yes: WNL Edema: Yes Edema: LLE: 1+ Neurological: Yes: Oriented Psychiatric: Yes: Oriented Labs: CBC, BMP 04/07/17 05:40 04/07/17 05:40 INR, PTT INR 1.24 (0.82-1.09) H 04/04/17 10:27 Problem List - Problems (1) Acute renal failure Code(s): N17.9 - ACUTE KIDNEY FAILURE, UNSPECIFIED Qualifiers: Acute renal failure type: unspecified Qualified Code(s): N17.9 - Acute kidney failure, unspecified (2) DVT (deep venous thrombosis) Code(s): I82.409 - ACUTE EMBOLISM AND THOMBOS UNSP DEEP VN UNSP LOWER EXTREMITY Qualifiers: DVT location: lower extremity Affected thrombotic vein of extremity: femoral Chronicity: acute Laterality: left Qualified Code(s): I82.412 - Acute embolism and thrombosis of left femoral vein Assessment/Plan Current Medications Generic Name Dose Route Start Last Admin Trade Name Freq PRN Reason Stop Dose Admin Acetaminophen 650 mg 04/04/17 14:31 Tylenol - PO Q4H PRN fever Finasteride 5 mg 04/06/17 10:30 04/07/17 09:55 Proscar - PO 5 mg DAILY [facility] Administration Gabapentin 100 mg 04/06/17 10:00 04/07/17 09:55 Neurontin - PO 100 mg BID LA[facility] Administration Heparin Sodium (Porcine) 1,000 unit 04/04/17 13:32 04/07/17 08:17 Heparin - IVPUSH 1,000 unit PRN PRN Administration Heparin Heparin Sodium (Porcine) 5,000 unit 04/04/17 13:32 04/05/17 18:34 Heparin - IVPUSH 5,000 unit PRN PRN Administration Heparin Heparin Sodium (Porcine) 25, 500 mls @ 26 mls/hr 04/05/17 09:26 04/07/17 08:00 000 unit/ Sodium Chloride IV 36 mls/hr TITR LAURE Administration Protocol 1,300 UNIT/HR Sodium Chloride 1,000 mls @ 65 mls/hr 04/06/17 14:45 04/07/17 08:20 1/2 Normal Saline IV 65 mls/hr ASDIR LA[facility] Administration Insulin Aspart 1 vial 04/04/17 16:30 04/07/17 11:57 Novolog Vial Sliding Scale - SQ 2 units ACHS [facility] Administration Protocol Tamsulosin HCl 0.4 mg 04/06/17 22:00 04/07/17 09:55 Flomax - PO 0.4 mg BID LAURE Administration Impression 1. CROW 2. obstructive uropathy 3. hyperkalemia 4. DVT 5. polycythemia 6. DM 7. prostate enlargement Plan - creatinine continues to improve - voiding trial on 04/10 - hematology input appreciated - pt has history of hematuria, urology follow up - low potassium diet - will decrease rate of fluids - repeat labs in am - will follow Dr Carias
[2017-04-07] MEDS ORDERED: INSULIN (NOVOLOG) ASPART 100 UNITS/ML 10ML VIAL ONE (19:57)
[2017-04-08] MEDS: HEPARIN - 25,000 UNIT in SODIUM CHLORIDE 495 ML IV SCH ×3 (01:21→17:00)
[2017-04-08] MEDS: INSULIN SLIDING SCALE (NOVOLOG) 1 VIAL SQ SCH ×4 (06:11→21:25)
[2017-04-08 08:16] LABS: ANION GAP 10 (8-16); CALCIUM 8.5 mg/dL (8.5-10.1); CO2 22 mmol/L (21-32); CREATININE 1.2 mg/dL (0.7-1.3); GLUCOSE,RANDOM 120 mg/dL (74-106); MAGNESIUM 1.6 mg/dL (1.8-2.4); MCH 36.6 pg (25.7-33.7); MCHC 32.6 g/dl (32.0-35.9); MEAN CELL VOLUME 112.2 fl (80-96); PHOSPHOROUS 3.6 mg/dL (2.5-4.9); RDW 15.3 % (11.9-15.9); WHITE BLOOD COUNT 14.7 K/mm3 (4.0-10.0)
[2017-04-08] MEDS: FINASTERIDE 5 MG TABLET (FP) PO SCH (09:03)
[2017-04-08] MEDS: TAMSULOSIN HCL 0.4 MG CAP.ER.24H (FP) PO SCH ×2 (09:03→21:25)
[2017-04-08] MEDS: GABAPENTIN 100 MG CAPSULE (FP) PO SCH ×2 (09:03→21:25)
[2017-04-08] MEDS: HEPARIN NA (PORCINE) 5,000 UNITS/ML 1ML VIAL IVPUSH PRN ×2 (10:50→19:22)
[2017-04-08 11:17] LABS: PLATELET ESTIMATE INCREASED (NORMAL)
--- NOTE | 2017-04-08 11:50 | PN ---
Progress Note (short form) - Note Progress Note: RENAL Pt is awake and alert comfortable says he walked yesterday and felt real good Last Vital Signs Temp Pulse Resp BP Pulse Ox 98.0 F 85 20 151/81 95 04/08/17 06:00 04/08/17 06:00 04/08/17 06:00 04/08/17 06:00 04/07/17 21:00 lungs few rhonchi cvs s1s2 rr abd soft ext left lower extremity edema more than right neuro a+ox3 CBC, BMP 04/08/17 06:30 04/08/17 06:30 Current Medications Generic Name Dose Route Start Last Admin Trade Name Freq PRN Reason Stop Dose Admin Acetaminophen 650 mg 04/04/17 14:31 Tylenol - PO Q4H PRN fever Finasteride 5 mg 04/06/17 10:30 04/08/17 09:03 Proscar - PO 5 mg DAILY [facility] Administration Gabapentin 100 mg 04/06/17 10:00 04/08/17 09:03 Neurontin - PO 100 mg BID LA[facility] Administration Heparin Sodium (Porcine) 1,000 unit 04/04/17 13:32 04/07/17 08:17 Heparin - IVPUSH 1,000 unit PRN PRN Administration Heparin Heparin Sodium (Porcine) 5,000 unit 04/04/17 13:32 04/08/17 10:50 Heparin - IVPUSH 5,000 unit PRN PRN Administration Heparin Heparin Sodium (Porcine) 25, 500 mls @ 26 mls/hr 04/05/17 09:26 04/08/17 10:52 000 unit/ Sodium Chloride IV 1,950 unit/hr TITR LAURE Titration Protocol 1,300 UNIT/HR Sodium Chloride 1,000 mls @ 42 mls/hr 04/07/17 15:10 04/07/17 15:30 1/2 Normal Saline IV 42 mls/hr ASDIR [facility] Administration Insulin Aspart 1 vial 04/04/17 16:30 04/08/17 06:11 Novolog Vial Sliding Scale - SQ Not Given ACHS [facility] Protocol Tamsulosin HCl 0.4 mg 04/06/17 22:00 04/08/17 09:03 Flomax - PO 0.4 mg BID LAURE Administration Impression 1. CROW 2. obstructive uropathy better with guerrier 3. hyperkalemia 4. DVT 5. polycythemia 6. DM 7. prostate enlargement Plan - creatinine continues to improve - voiding trial on 04/10 - pt has history of hematuria, urology follow up - low potassium diet -dc fluids MV
--- NOTE | 2017-04-08 12:34 | PN ---
Physical Exam: SUBJECTIVE: Patient seen and examined oob to chair. Feels better, less depressed. Walked yesterday with PT. Feels a twinge in left calf when he walks. OBJECTIVE: Vital Signs Period Temp Pulse Resp BP Sys/Grey Pulse Ox Last 24 Hr 98.0 F-98.8 F 82-94 18-20 128-151/70-81 95 GENERAL: The patient is awake, alert, and fully oriented, in no acute distress. HEAD: Normal with no signs of trauma. EYES: PERRL, extraocular movements intact, sclera anicteric, conjunctiva clear. No ptosis. LUNGS: Breath sounds equal, clear to auscultation bilaterally, no wheezes, no crackles, no accessory muscle use. HEART: Regular rate and rhythm, S1, S2 without murmur, rub or gallop. ABDOMEN: Soft, nontender, nondistended, normoactive bowel sounds, no guarding, no rebound EXTREMITIES: LLE swelling from thigh to foot, 2+ pulses, warm, well-perfused NEUROLOGICAL: Cranial nerves II through XII grossly intact. Normal speech, gait not observed. Laboratory Results - last 24 hr 04/07/17 04/07/17 04/07/17 05:40 12:50 16:22 WBC 14.6 H RBC 3.61 L Hgb 13.0 Hct 41.1 MCV 113.9 H MCH MCHC 36.0 H RDW 15.4 Plt Count No Result Required. MPV 12.0 H Platelet Estimate Adequate Platelet Comment No clotting detected PTT (Actin FS) 56.0 H Sodium Potassium Chloride Carbon Dioxide Anion Gap BUN Creatinine POC Glucometer 113 Random Glucose Calcium Phosphorus Magnesium 04/07/17 04/08/17 04/08/17 21:35 06:09 06:30 WBC 14.7 H RBC 3.49 L Hgb 12.8 Hct 39.1 MCV 112.2 H MCH 36.6 H MCHC 32.6 RDW 15.3 Plt Count No Result Required. MPV Platelet Estimate Increased Platelet Comment Many large plts PTT (Actin FS) Sodium Potassium Chloride Carbon Dioxide Anion Gap BUN Creatinine POC Glucometer 136 131 Random Glucose Calcium Phosphorus Magnesium 04/08/17 04/08/17 06:30 06:30 WBC RBC Hgb Hct MCV MCH MCHC RDW Plt Count MPV Platelet Estimate Platelet Comment PTT (Actin FS) 39.8 H Sodium 138 Potassium 5.1 Chloride 106 Carbon Dioxide 22 Anion Gap 10 BUN 18 D Creatinine 1.2 POC Glucometer Random Glucose 120 H Calcium 8.5 Phosphorus 3.6 Magnesium 1.6 L Active Medications Generic Name Dose Route Start Last Admin Trade Name Freq PRN Reason Stop Dose Admin Acetaminophen 650 mg 04/04/17 14:31 Tylenol - PO Q4H PRN fever Docusate Sodium 100 mg 04/08/17 14:00 Colace - PO TID LAURE Finasteride 5 mg 04/06/17 10:30 04/08/17 09:03 Proscar - PO 5 mg DAILY [facility] Administration Gabapentin 100 mg 04/06/17 10:00 04/08/17 09:03 Neurontin - PO 100 mg BID [facility] Administration Heparin Sodium (Porcine) 1,000 unit 04/04/17 13:32 04/07/17 08:17 Heparin - IVPUSH 1,000 unit PRN PRN Administration Heparin Heparin Sodium (Porcine) 5,000 unit 04/04/17 13:32 04/08/17 10:50 Heparin - IVPUSH 5,000 unit PRN PRN Administration Heparin Heparin Sodium (Porcine) 25, 500 mls @ 26 mls/hr 04/05/17 09:26 04/08/17 10:52 000 unit/ Sodium Chloride IV 1,950 unit/hr TITR [facility] Titration Protocol 1,300 UNIT/HR Insulin Aspart 1 vial 04/04/17 16:30 04/08/17 12:24 Novolog Vial Sliding Scale - SQ Not Given ACHS [facility] Protocol Tamsulosin HCl 0.4 mg 04/06/17 22:00 04/08/17 09:03 Flomax - PO 0.4 mg BID LAURE Administration Imaging 04/04 CXR: unremarkable 04/04 US bladder: mild left hydronephrosis; marked prostate enlargement ASSESSMENT/PLAN 61 year-old male with a significant PMH of polycythemia vera, thrombocytopenia, recurrent lower extremity DVTs, NIDDM, and s/p splenectomy secondary to trauma. Admitted for LLE DVT and CROW. LLE DVT --this is 3rd DVT for this patient, had not been on anticoagulation at home --on heparin drip --seen and evaluated by jewelry polisher Dr. Magy Barroso; plan to start Eliquis when acute renal issues resolve; she will follow as outpatient Polycythemia vera Thrombocytopenia --stable Acute kidney injury BPH --obstructive, enlarged prostate --Cr 7.1 on admission, today 1.2 --seen by urology, maintain guerrier until 04/10 --continue flomax, proscar NIDDM --Novolog sliding scale coverage F/E/N Fluids: PO intake adequate Electrolytes: replete as indicated Nutrition: diabetic diet DVT prophylaxis: heparin drip, oob, ambulation Physical therapy Dispo: plan is to d/c guerrier on 04/10 and do voiding trial; if successful, start Eliquis and discharge patient. Continues to require inpatient care. Full Code. Visit type - Emergency Visit Emergency Visit: Yes ED Registration Date: 04/04/17 Care time: The patient presented to the Emergency Department on the above date and was hospitalized for further evaluation of their emergent condition. - New Patient This patient is new to me today: No - Critical Care Critical Care patient: No
[2017-04-08] MEDS: DOCUSATE SODIUM 100 MG CAPSULE (FP) PO SCH ×2 (14:26→21:25)
[2017-04-09] MEDS: HEPARIN NA (PORCINE) 5,000 UNITS/ML 1ML VIAL IVPUSH PRN (03:36)
[2017-04-09] MEDS ORDERED: HEPARIN INFUSION - 500 ML IVPB ONE (04:15)
[2017-04-09] MEDS: HEPARIN - 25,000 UNIT in SODIUM CHLORIDE 495 ML IV SCH ×2 (05:53→17:25)
[2017-04-09] MEDS: DOCUSATE SODIUM 100 MG CAPSULE (FP) PO SCH ×3 (06:20→21:56)
[2017-04-09] MEDS: INSULIN SLIDING SCALE (NOVOLOG) 1 VIAL SQ SCH ×3 (06:20→17:25)
[2017-04-09 08:38] LABS: EOSINOPHIL 0.9 % (0-4.5); MCH 36.7 pg (25.7-33.7); MCHC 32.8 g/dl (32.0-35.9); MEAN CELL VOLUME 112.1 fl (80-96); MEAN PLT VOLUME 10.9 fl (7.5-11.1); RDW 15.4 % (11.9-15.9); WHITE BLOOD COUNT 15.2 K/mm3 (4.0-10.0)
[2017-04-09 09:26] LABS: ALBUMIN 2.6 g/dl (3.4-5.0); ANION GAP 10 (8-16); CO2 22 mmol/L (21-32); GLUCOSE,RANDOM 119 mg/dL (74-106); SGOT/AST 20 U/L (15-37); SGPT/ALT 19 U/L (12-78)
[2017-04-09 09:29] LABS: ALK PHOS 77 U/L (45-117); BILIRUBIN,TOTAL 0.7 mg/dL (0.2-1.0); CALCIUM 8.7 mg/dL (8.5-10.1); CREATININE 1.3 mg/dL (0.7-1.3); MAGNESIUM 1.6 mg/dL (1.8-2.4); TOT PROT 6.3 g/dl (6.4-8.2)
[2017-04-09] MEDS: GABAPENTIN 100 MG CAPSULE (FP) PO SCH ×2 (10:18→21:56)
[2017-04-09] MEDS: TAMSULOSIN HCL 0.4 MG CAP.ER.24H (FP) PO SCH ×2 (10:19→21:56)
[2017-04-09] MEDS: FINASTERIDE 5 MG TABLET (FP) PO SCH (10:20)
[2017-04-09 11:15] LABS: PLATELET COUNT 512 K/MM3 (134-434)
--- NOTE | 2017-04-09 11:46 | PN ---
Physical Exam: SUBJECTIVE: Patient seen and examined oob to chair. Has not walked today. OBJECTIVE: Vital Signs Period Temp Pulse Resp BP Sys/Grey Pulse Ox Last 24 Hr 98.3 F-99.0 F 74-94 20-20 133-140/64-74 GENERAL: The patient is awake, alert, and fully oriented, in no acute distress. HEAD: Normal with no signs of trauma. EYES: PERRL, extraocular movements intact, sclera anicteric, conjunctiva clear. No ptosis. LUNGS: Breath sounds equal, clear to auscultation bilaterally, no wheezes, no crackles, no accessory muscle use. HEART: Regular rate and rhythm, S1, S2 without murmur, rub or gallop. ABDOMEN: Soft, nontender, nondistended, normoactive bowel sounds, no guarding, no rebound EXTREMITIES: LLE swelling worse today, now 3-4+; leg is warm, well-perfused, good DP pulses NEUROLOGICAL: Cranial nerves II through XII grossly intact. Normal speech, gait not observed. Laboratory Results - last 24 hr 04/08/17 04/08/17 04/08/17 12:14 17:10 20:53 WBC RBC Hgb Hct MCV MCH MCHC RDW Plt Count MPV Neutrophils % Lymphocytes % Monocytes % Eosinophils % Basophils % PTT (Actin FS) 46.9 H Sodium Potassium Chloride Carbon Dioxide Anion Gap BUN Creatinine Creat Clearance w eGFR POC Glucometer 132 139 Random Glucose Calcium Magnesium Total Bilirubin AST ALT Alkaline Phosphatase Total Protein Albumin 04/09/17 04/09/17 04/09/17 01:30 05:57 07:15 WBC RBC Hgb Hct MCV MCH MCHC RDW Plt Count MPV Neutrophils % Lymphocytes % Monocytes % Eosinophils % Basophils % PTT (Actin FS) 46.1 H 66.6 H D Sodium Potassium Chloride Carbon Dioxide Anion Gap BUN Creatinine Creat Clearance w eGFR POC Glucometer 116 Random Glucose Calcium Magnesium Total Bilirubin AST ALT Alkaline Phosphatase Total Protein Albumin 04/09/17 04/09/17 07:15 07:15 WBC 15.2 H RBC 3.49 L Hgb 12.8 Hct 39.2 MCV 112.1 H MCH 36.7 H MCHC 32.8 RDW 15.4 Plt Count 512 H D MPV 10.9 Neutrophils % 74.0 Lymphocytes % 16.1 Monocytes % 8.0 Eosinophils % 0.9 Basophils % 1.0 PTT (Actin FS) Sodium 139 Potassium 5.2 H Chloride 107 Carbon Dioxide 22 Anion Gap 10 BUN 16 Creatinine 1.3 Creat Clearance w eGFR 55.94 POC Glucometer Random Glucose 119 H Calcium 8.7 Magnesium 1.6 L Total Bilirubin 0.7 AST 20 ALT 19 Alkaline Phosphatase 77 Total Protein 6.3 L Albumin 2.6 L Active Medications Generic Name Dose Route Start Last Admin Trade Name Freq PRN Reason Stop Dose Admin Acetaminophen 650 mg 04/04/17 14:31 Tylenol - PO Q4H PRN fever Docusate Sodium 100 mg 04/08/17 14:00 04/09/17 06:20 Colace - PO 100 mg TID [facility] Administration Finasteride 5 mg 04/06/17 10:30 04/09/17 10:20 Proscar - PO 5 mg DAILY [facility] Administration Gabapentin 100 mg 04/06/17 10:00 04/09/17 10:18 Neurontin - PO 100 mg BID [facility] Administration Heparin Sodium (Porcine) 1,000 unit 04/04/17 13:32 04/09/17 03:36 Heparin - IVPUSH 1,000 unit PRN PRN Administration Heparin Heparin Sodium (Porcine) 5,000 unit 04/04/17 13:32 04/08/17 10:50 Heparin - IVPUSH 5,000 unit PRN PRN Administration Heparin Heparin Sodium (Porcine) 25, 500 mls @ 26 mls/hr 04/05/17 09:26 04/09/17 05:53 000 unit/ Sodium Chloride IV 43 mls/hr TITR [facility] Administration Protocol 1,300 UNIT/HR Insulin Aspart 1 vial 04/04/17 16:30 04/09/17 06:20 Novolog Vial Sliding Scale - SQ Not Given ACHS [facility] Protocol Tamsulosin HCl 0.4 mg 04/06/17 22:00 04/09/17 10:19 Flomax - PO 0.4 mg BID LAURE Administration Imaging 04/04 CXR: unremarkable 04/04 US bladder: mild left hydronephrosis; marked prostate enlargement 04/04: DVT entire LLE ASSESSMENT/PLAN 61 year-old male with a significant PMH of polycythemia vera, thrombocytopenia, recurrent lower extremity DVTs, NIDDM, and s/p splenectomy secondary to trauma. Admitted for LLE DVT and CROW. LLE DVT --swelling is worse today; requested IR consult for possible thrombectomy --continue heparin drip --seen and evaluated by nylon winder Dr. Magy Barroso; plan to start Eliquis when acute renal issues resolve; she will follow as outpatient Acute kidney injury, resolved BPH --obstructive, enlarged prostate --Cr 7.1 on admission, today 1.3 --seen by urology, maintain guerrier until 04/10 --continue flomax, proscar Polycythemia vera Thrombocytosis Leukocytosis --chronic issues, follow up with Dr. Barroso as outpatient NIDDM --Novolog sliding scale coverage F/E/N Fluids: PO intake adequate Electrolytes: replete as indicated Nutrition: diabetic diet DVT prophylaxis: heparin drip, oob, ambulation Physical therapy Daily PT Dispo: continues to require inpatient care. Full Code. Visit type - Emergency Visit Emergency Visit: Yes ED Registration Date: 04/04/17 Care time: The patient presented to the Emergency Department on the above date and was hospitalized for further evaluation of their emergent condition. - New Patient This patient is new to me today: No - Critical Care Critical Care patient: No
--- NOTE | 2017-04-09 12:00 | PN ---
Progress Note (short form) - Note Progress Note: RENAL Pt is awake and alert comfortable feels well Last Vital Signs Temp Pulse Resp BP Pulse Ox 98.3 F 74 20 140/64 96 04/09/17 06:00 04/09/17 06:00 04/09/17 06:00 04/09/17 06:00 04/08/17 09:00 lungs few rhonchi cvs s1s2 rr abd soft ext left lower extremity edema more than right neuro a+ox3 CBC, BMP 04/09/17 07:15 04/09/17 07:15 Current Medications Generic Name Dose Route Start Last Admin Trade Name Freq PRN Reason Stop Dose Admin Acetaminophen 650 mg 04/04/17 14:31 Tylenol - PO Q4H PRN fever Docusate Sodium 100 mg 04/08/17 14:00 04/09/17 06:20 Colace - PO 100 mg TID [facility] Administration Finasteride 5 mg 04/06/17 10:30 04/09/17 10:20 Proscar - PO 5 mg DAILY [facility] Administration Gabapentin 100 mg 04/06/17 10:00 04/09/17 10:18 Neurontin - PO 100 mg BID [facility] Administration Heparin Sodium (Porcine) 1,000 unit 04/04/17 13:32 04/09/17 03:36 Heparin - IVPUSH 1,000 unit PRN PRN Administration Heparin Heparin Sodium (Porcine) 5,000 unit 04/04/17 13:32 04/08/17 10:50 Heparin - IVPUSH 5,000 unit PRN PRN Administration Heparin Heparin Sodium (Porcine) 25, 500 mls @ 26 mls/hr 04/05/17 09:26 04/09/17 05:53 000 unit/ Sodium Chloride IV 43 mls/hr TITR [facility] Administration Protocol 1,300 UNIT/HR Insulin Aspart 1 vial 04/04/17 16:30 04/09/17 06:20 Novolog Vial Sliding Scale - SQ Not Given ACHS [facility] Protocol Tamsulosin HCl 0.4 mg 04/06/17 22:00 04/09/17 10:19 Flomax - PO 0.4 mg BID [facility] Administration Impression 1. CROW 2. obstructive uropathy better with guerrier 3. hyperkalemia may improve once heparin is discontinued 4. DVT 5. polycythemia 6. DM 7. prostate enlargement Plan - creatinine continues to improve - voiding trial on 04/10 - pt has history of hematuria, urology follow up - low potassium diet MV
[2017-04-09] MEDS ORDERED: PT OWN MED DRAWER 7, Y5N ONE (18:52)
[2017-04-10] MEDS: INSULIN SLIDING SCALE (NOVOLOG) 1 VIAL SQ SCH ×3 (01:29→11:00)
[2017-04-10] MEDS ORDERED: HEPARIN INFUSION - 500 ML IVPB ONE (05:25)
[2017-04-10] MEDS: HEPARIN - 25,000 UNIT in SODIUM CHLORIDE 495 ML IV SCH ×2 (05:30→09:37)
[2017-04-10] MEDS: DOCUSATE SODIUM 100 MG CAPSULE (FP) PO SCH (06:40)
[2017-04-10 08:40] LABS: WHITE BLOOD COUNT 15.8 K/mm3 (4.0-10.0)
[2017-04-10 08:41] LABS: MCH 36.6 pg (25.7-33.7); MCHC 32.8 g/dl (32.0-35.9); MEAN CELL VOLUME 111.6 fl (80-96); MEAN PLT VOLUME 10.6 fl (7.5-11.1); RDW 14.9 % (11.9-15.9)
[2017-04-10] MEDS: TAMSULOSIN HCL 0.4 MG CAP.ER.24H (FP) PO SCH (09:31)
[2017-04-10] MEDS: FINASTERIDE 5 MG TABLET (FP) PO SCH (09:32)
[2017-04-10] MEDS: GABAPENTIN 100 MG CAPSULE (FP) PO SCH (09:32)
[2017-04-10 09:59] LABS: PLATELET COMMENT2 MOD PLT CLUMPING; PLATELET ESTIMATE ADEQUATE (NORMAL)
[2017-04-10 11:35] VITALS: TEMP 98.2
[2017-04-10] MEDS ORDERED: ALTEPLASE 2 MG VIAL IVPB ONE ×2 (12:00)
[2017-04-10 12:38] VITALS: BP 132/81; PULSE 90
--- NOTE | 2017-04-10 14:08 | PN ---
Progress Note (short form) - Note Progress Note: Code 99 called for a patient in the Intervential radiology suite. CPR in progress. Mask ventilation with 100% O2. Mac 4 grade 4 view. esophageal intubation x 2. 7.5 ETT with tracheal intubation. Equal breath sound bilaterally. + EtCO2. Code 99 continued with meds given per code record. Cardiac U/S showed severe myocardial hypokinesis. Pt. pronounced at 1: 12pm.
--- NOTE | 2017-04-10 16:36 | DS ---
Physical Exam: HOSPITAL COURSE: Date of Admission:04/04/17 Date of : 04/10/17 Pre hospital course Patient is a 61 year-old male, with a significant PMH of polycythemia vera, thrombocytopenia, recurrent lower extremity DVTs, NIDDM, and s/p splenectomy secondary to trauma. Patient reported that on , 03/30/17, he developed pain to the left lower extremity with shortness of breath. Patient reported the pain and shortness of breath worsened over 5 days. On the day he presented to the ED he was unable to ambulate due to the ongoing pain in the left lower extremity with progressive shortness of breath. He denied chest pain, dizziness or headaches. Patient did report compliance with prescribed hydroxyurea. ER course was notable for: (1) ultrasound of left lower extremity deep vein thrombosis of the left lower extremity (2) ekg sinus tachycardia with left axis deviation, inverted t waves inferior leads, unchanged from prior (3) heparin gtt started @ 1348 (4) BUN 71 Cr 7.1 Imaging 04/04 CXR: unremarkable 04/04 US bladder: mild left hydronephrosis; marked prostate enlargement 04/04: DVT entire LLE Subsequent hospital course by problem list LLE DVT --patient was maintained on a heparin drip --he was seen seen and evaluated by his home advertising sales representative Dr. Mgay Barroso; her plan was to start Eliquis when acute renal issues resolved; she would follow as outpatient --he was seen and evaluated by vascular surgery, plan was to continue heparin drip --throughout the hospital stay, the LLE was swollen, from above the knee to the toes; the extremity was consistently warm and well-perfused with strong DP pulses; on Monday, 04/09 the swelling worsened; discussed with the patient we would request a consult from the IR physician for possible thrombectomy --on 04/10, patient was brought to the IR suite; Dr. Rankin discussed risk/ benefits of planned thrombectomy and patient consented to the procedure --prior the commencement of the procedure the patient went into respiratory and cardiac arrest --Code 99 was called and ACLS resuscitation measures were undertaken including intubation and TPA administration; code sheet is incorporated by reference (this story writer not present during the code) --patient at 1:12pm, pronounced by Dr. Austin Acute kidney injury, resolved BPH --obstructive, enlarged prostate, treated with flomax, proscar --Cr 7.1 on admission, today 1.2 --plan was to d/c guerrier today for voiding trial Polycythemia vera Thrombocytosis Leukocytosis --chronic issues NIDDM --Novolog sliding scale coverage maintained Minutes to complete discharge: 35 Discharge Summary Reason For Visit: LEFT LOWER EXTREMITY DVT, RENAL FAILURE Condition: Guarded - Instructions Disposition: - Home Medications Comprehensive Discharge Medication List: Ambulatory Orders Gabapentin 100 mg PO BID 04/06/17 Hydroxyurea [Hydrea -] 1,000 mg PO [id number] 04/06/17 Hydroxyurea [Hydrea -] 500 mg PO SUSA 04/06/17 Metformin HCl 500 mg PO BIDAC 04/06/17 This patient is new to me today: No Emergency Visit: Yes ED Registration Date: 04/04/17 Care time: The patient presented to the Emergency Department on the above date and was hospitalized for further evaluation of their emergent condition. Critical Care patient: No - Discharge Referral Referred to [facility] No
== END 2017-04-10 15:59 | disposition expired | DRG 270 ==
LOC: FER 10:07 → J5S 15:50
PROVIDERS: ADMIT Internal Medicine; ATTEND Nurse Practitioner Acute Care
PROC: 3E03317 Introduction of Other Thrombolytic into Peripheral Vein, Percutaneous Approach (ICD-10-PCS; 2017-04-04)
PROC: 06CY3ZZ Extirpation of Matter from Lower Vein, Percutaneous Approach (ICD-10-PCS; principal; 2017-04-10)
PROC: 3E03317 Introduction of Other Thrombolytic into Peripheral Vein, Percutaneous Approach (ICD-10-PCS; 2017-04-10)
PROC: B50C1ZZ Plain Radiography of Left Lower Extremity Veins using Low Osmolar Contrast (ICD-10-PCS; 2017-04-10)
PROC: 5A12012 Performance of Cardiac Output, Single, Manual (ICD-10-PCS; 2017-04-10)
PROC: 0BH17EZ Insertion of Endotracheal Airway into Trachea, Via Natural or Artificial Opening (ICD-10-PCS; 2017-04-10)
DX: I82.412 Acute embolism and thrombosis of left femoral vein (principal); I26.99 Other pulmonary embolism without acute cor pulmonale; N17.9 Acute kidney failure, unspecified; N13.30 Unspecified hydronephrosis; I97.711 Intraoperative cardiac arrest during other surgery; I82.432 Acute embolism and thrombosis of left popliteal vein; I82.442 Acute embolism and thrombosis of left tibial vein; D45 Polycythemia vera; E11.9 Type 2 diabetes mellitus without complications; D69.6 Thrombocytopenia, unspecified; N40.1 Benign prostatic hyperplasia with lower urinary tract symptoms; N13.9 Obstructive and reflux uropathy, unspecified; E87.5 Hyperkalemia; Z90.81 Acquired absence of spleen; D72.829 Elevated white blood cell count, unspecified; Z86.718 Personal history of other venous thrombosis and embolism; Y83.8 Other surgical procedures as the cause of abnormal reaction of the patient, or of later complication, without mention of misadventure at the time of the procedure; Y92.238 Other place in hospital as the place of occurrence of the external cause
CPT/HCPCS: 36415; 37187; 71010-TC; 76000-TC; 76775-TC; 76856-TC; 76937-TC; 80048; 80053; 81003; 81015; 82436; 82550; 82570; 83735; 84100; 84133; 84300; 84484; 85025; 85027; 85610; 85730; 87086; 93005; 93971-TC; 97116-GP; 97161-GP; 99284-25; C1757; C1769; C1887; C1894; J1644